=== PATIENT | female | born 1990 | race Caucasian/White ===

== ENCOUNTER 2017-03-15 15:01 | Emergency (ER) | payer OTHER ==
[~2017-03-15] VITALS: Ht 154.9 cm; Wt 57.5 kg
[~2017-03-15 15:01] MED LIST: ACET500C5 PO; ALBU8.5H3 INH; CIPR500T4 PO; IBUP-1542 PO; MED4DP PO; METR500T PO; ONDA4TAB8 PO; POLY17PO6 PO; PRED20TA PO
[2017-03-15 15:05] VITALS: Ht 154.9 cm; Wt 57.5 kg
[2017-03-15] MEDS ORDERED: LORAZEPAM 0.5 MG TAB PO ONE (18:30)
[2017-03-15 18:32] LABS: URINE BLOOD (Dip) POC Negative (NEGATIVE)
[2017-03-15] MEDS ORDERED: LORA-441 PO (18:58)
--- NOTE | 2017-03-15 19:15 | ERD ---
ER Documentation Chief Complaint Date/Time DATE: 03/15/17 TIME: 19:12 Chief Complaint Complains of itching x 1 month since started control HPI This patient is a 27-year-old female with past medical history of asthma, IBS, psoriasis, and anxiety presenting to the emergency department for 1 month of generalized pruritus. The symptoms have been worsening. The patient states she takes around 4-6 Benadryl 25 mg tablets per day with only mild relief of symptoms. The patient states she had a Nexplanon placed 1 month ago. The patient denies all other symptoms at this time. ROS All systems reviewed and are negative except as per history of present illness. Medications Home Meds Active Scripts Lorazepam* (Ativan*) 0.5 Mg Tablet, 0.5 MG PO Q8, #10 TAB Prov:MERARI PAULINO PA-C 03/15/17 Ondansetron Hcl* (Zofran*) 4 Mg Tablet, 4 MG PO Q6H for NAUSEA AND/OR VOMITING, #30 TAB Prov:KAROL BUNCH PA-C 09/28/16 Acetaminophen* (Tylophen*) 500 Mg Capsule, 1 CAP PO Q6H Y for PAIN AND OR ELEVATED TEMP, #20 CAP Prov:KAROL BUNCH PA-C 09/28/16 Polyethylene Glycol* (Miralax*) 17 Gm Powd.pack, 8.5 GM PO DAILY, #30 PACKET Prov:KAROL BUNCH PA-C 09/28/16 Methylprednisolone* (Medrol* DOSE PACK) 4 Mg/Dose-Pack Tab.ds.pk, 4 MG PO . DIRECTED for 6 Days, PACKET Prov:KAROL BUNCH PA-C 09/28/16 Ondansetron Hcl* (Zofran*) 4 Mg Tablet, 4 MG PO Q6H for NAUSEA AND/OR VOMITING, #30 TAB Prov:THIERRY DODD PA-C 09/21/16 Metronidazole* (Flagyl*) 500 Mg Tablet, 500 MG PO TID for 10 Days, TAB Prov:THIERRY DODD PA-C 09/21/16 Ciprofloxacin Hcl* (Ciprofloxacin Hcl*) 500 Mg Tablet, 500 MG PO BID for 7 Days , TAB Prov:THIERRY DODD PA-C 09/21/16 Prednisone* (Prednisone*) 20 Mg Tab, 40 MG PO DAILY for 4 Days, TAB Prov:JUTHIERRYSALOMON Swift PA-C 09/21/16 Ibuprofen* (Motrin*) 600 Mg Tab, 600 MG PO Q6, #20 TAB Prov:ANDREW COLON PA-C 05/28/15 Ciprofloxacin Hcl* (Ciprofloxacin Hcl*) 500 Mg Tablet, 500 MG PO BID for 7 Days , TAB Prov:ANDREW COLON PA-C 05/28/15 Reported Medications Albuterol Sulfate* (Proair HFA*) 8.5 Gm Hfa.aer.ad, 1-2 PUFF INH Q4-6 HOURS Y for WHEEZING AND SOB, INH 05/28/15 Allergies Allergies: Coded Allergies: No Known Allergy (Unverified , 09/28/16) PMhx/Soc History of Surgery: No Anesthesia Reaction: No Hx Neurological Disorder: No Hx Respiratory Disorders: Yes (asthma) Hx Cardiac Disorders: No Hx Psychiatric Problems: No Hx Miscellaneous Medical Probl: Yes (irritable bowel syndrome) Hx Alcohol Use: No Hx Substance Use: Yes (marijuana - used to) Hx Tobacco Use: No FmHx Noncontributory for chief complaint Physical Exam Vitals Vital Signs Date Time Temp Pulse Resp B/P Pulse Ox O2 Delivery O2 Flow Rate FiO2 03/15/17 15:05 98.9 90 20 128/72 94 Physical Exam Const: The patient is mildly anxious appearing. Head: Atraumatic Eyes: Normal Conjunctiva ENT: Normal External Ears, Nose and Mouth. Neck: Full range of motion..~ No meningismus. Resp: Clear to auscultation bilaterally Cardio: Regular rate and rhythm, no murmurs Abd: Soft, non tender, non distended. Normal bowel sounds Skin: No petechiae or rashes. There is some scattered macular papular areas in the bilateral upper and lower extremities. Back: No midline or flank tenderness Ext: No cyanosis, or edema Neur: Awake and alert Psych: The patient has an anxious affect. The patient denies homicidal or suicidal ideation. Results 24 hrs Laboratory Tests Test 03/15/17 18:33 Bedside Urine pH (LAB) 7.0 Bedside Urine Protein (LAB) 1+ Bedside Urine Glucose (UA) Negative Bedside Urine Ketones (LAB) 1+ Bedside Urine Blood Negative Bedside Urine Nitrite (LAB) Negative Bedside Urine Leukocyte Esterase (L Negative Current Medications Medications (Trade) Dose Ordered Sig/Lj Route PRN Reason Start Time Stop Time Status Last Admin Dose Admin Lorazepam (Ativan) 0.5 mg ONCE ONCE PO 03/15/17 18:30 03/15/17 18:31 DC 03/15/17 18:28 Procedures/MDM 27-year-old female presents to the emergency department secondary to complaints of generalized full body pruritus. On physical examination the patient's vitals are within normal limits however the patient does appear acutely anxious. The patient states she had an anxiety attack approximately 2 weeks ago and was taken to a different emergency room but she declined any antianxiety medications because she was unsure of the side effects. I had a long discussion with the patient about possibly taking antianxiety medication here in the emergency department for relief of her symptoms. The patient agreed that this would be a good option and she was given 0.5 mg p.o. Ativan and was feeling significantly improved on reevaluation. The patient is advised to continue taking Benadryl at home as needed [id number] for itching and she was given a very short course of Ativan treatment to be taken only as needed for anxiety or pruritus. The patient agreed with the discharge plan of diagnosis. The patient adamantly denied any suicidal or homicidal ideation. At this time I have low suspicion for any cellulitis or anaphylaxis. Strict ER return precautions were discussed and the patient demonstrates good understanding. The patient is to have very close follow-up with her primary care physician. Departure Diagnosis: Primary Impression: Anxiety reaction Additional Impressions: Itching Generalized pruritus Condition: Fair Patient Instructions: Your Body's Response to Anxiety, Anxiety Reaction Referrals: [facility] YOU HAVE RECEIVED A MEDICAL SCREENING EXAM AND THE RESULTS INDICATE THAT YOU DO NOT HAVE A CONDITION THAT REQUIRES URGENT TREATMENT IN THE EMERGENCY DEPARTMENT. FURTHER EVALUATION AND TREATMENT OF YOUR CONDITION CAN WAIT UNTIL YOU ARE SEEN IN YOUR DOCTORS OFFICE WITHIN THE NEXT 1-2 DAYS. IT IS YOUR RESPONSIBILITY TO MAKE AN APPOINTMENT FOR FOLOW-UP CARE. IF YOU HAVE A PRIMARY DOCTOR --you should call your primary doctor and schedule an appointment IF YOU DO NOT HAVE A PRIMARY DOCTOR YOU CAN CALL OUR PHYSICIAN REFERRAL HOTLINE AT IF YOU CAN NOT AFFORD TO SEE A PHYSICIAN YOU CAN CHOSE FROM THE FOLLOWING [facility] [id number] [facility] [address] [facility] [address] [facility] [address] [facility] [address] [facility]. [facility]. [address] [place] Additional Instructions: Follow up with your PCP within the next 1-3 days for a more thorough evaluation and a possible referral to a specialist. Return the the emergency department immediately if symptoms worsen or change. If you have any questions regarding medications, ask your pharmacist or us before you leave. If any adverse reactions, occur while taking your medications, discontinue the treatment and return to the emergency department immediately. If any new or worsening symptoms, uncontrolled fevers, or other unexplained symptoms occur, return to the emergency department immediately. Take your medications as directed, and complete the entire course of treatment. MERARI PAULINO PA-C March 15, 2017 19:14
[2017-03-15 19:17] VITALS: BP 126/83; PULSE 89; RESP 16
== END 2017-03-15 19:19 | disposition home or self-care (01) ==
LOC: FTE 15:01
DX: F41.1 Generalized anxiety disorder (principal); J45.909 Unspecified asthma, uncomplicated
CPT/HCPCS: 81003; Z7502; Z7610; 99283

== ENCOUNTER 2017-05-14 15:48 | Emergency (ER) | payer OTHER ==
[~2017-05-14] VITALS: Wt 54.5 kg
[~2017-05-14 15:48] MED LIST changes: +LORA-441 PO
[2017-05-14 17:09] LABS: BASOPHILS % 0.3 % (0.0-2.0); EOSINOPHILS % 0.3 % (0.0-7.0); HEMATOCRIT 43.8 % (37.0-47.0); HEMOGLOBIN 15.1 g/dl (12.0-16.0); LYMPHOCYTES % 26.1 % (15.0-51.0); MEAN CORPUSCULAR HEMOGLOBIN 32.3 pg (29.0-33.0); MEAN CORPUSCULAR HGB CONC 34.5 g/dl (32.0-37.0); MEAN CORPUSCULAR VOLUME 93.6 fl (82.0-101.0); MEAN PLATELET VOLUME 9.8 fl (7.4-10.4); MONOCYTE # 0.4 10^3/ul (0.3-0.9); MONOCYTES % 4.8 % (0.0-11.0); NEUTROPHIL # 5.2 10^3/ul (1.6-7.5); NEUTROPHILS % 68.2 % (39.0-77.0); PLATELET COUNT 277 10^3/UL (140-415); RED BLOOD COUNT 4.68 10^6/ul (4.20-5.40); RED CELL DISTRIBUTION WIDTH 11.9 % (11.5-14.5); WHITE BLOOD COUNT 7.6 10^3/ul (4.8-10.8)
[2017-05-14 17:10] LABS: ADD SCAN DIFF NO
[2017-05-14] MEDS ORDERED: DICYCLOMINE 10 MG CAP PO ONE (17:30)
[2017-05-14] MEDS ORDERED: MECLIZINE 12.5 MG TAB PO ONE (17:30)
--- NOTE | 2017-05-14 17:30 | ERD ---
ER Documentation Chief Complaint Date/Time DATE: 05/14/17 TIME: 17:27 Chief Complaint HEADACHE, DIZZINESS, ABD PAIN, ONSET SEVERAL DAYS HPI This is a 27-year-old female presents to the ER with multiple complaints. Patient states that yesterday she began to feel lightheaded as if she was going to faint. Patient states that whenever she gets up she feels as if the world is moving Patient is also complaining of headache, nausea. She denies vomiting. Patient did have a couple episodes of diarrhea on Wednesday, however states that now she is constipated. Patient does have a history of inflammatory bowel disease. Patient is additionally complaining of rashes all over her body that occur every day. She admits to increased and easy bruising. She also complains of right ear ringing. However she denies any ear pain or ear discharge. Patient denies any trauma to the head. She denies any loss of consciousness. She denies any vision changes. She denies any fevers or chills. She denies any urinary frequency or dysuria. She denies any chest pain or shortness of breath. ROS 12 point review of systems was done, all negative except per HPI. Medications Home Meds Active Scripts Ibuprofen* (Motrin*) 600 Mg Tab, 600 MG PO Q6, #30 TAB Prov:BRANDY AVILA 05/14/17 Meclizine Hcl* (Antivert*) 12.5 Mg Tab, 12.5 MG PO Q6H Y for DIZZINESS, #20 TAB Prov:BRANDY AVILA 05/14/17 Dicyclomine Hcl* (Bentyl*) 10 Mg Capsule, 10 MG PO QID for 7 Days, CAP Prov:BRANDY AVILA 05/14/17 Lorazepam* (Ativan*) 0.5 Mg Tablet, 0.5 MG PO Q8, #10 TAB Prov:MERARI PAULINO PA-C 03/15/17 Ondansetron Hcl* (Zofran*) 4 Mg Tablet, 4 MG PO Q6H for NAUSEA AND/OR VOMITING, #30 TAB Prov:KAROL BUNCH PA-C 09/28/16 Acetaminophen* (Tylophen*) 500 Mg Capsule, 1 CAP PO Q6H Y for PAIN AND OR ELEVATED TEMP, #20 CAP Prov:KAROL BUNCH PA-C 09/28/16 Polyethylene Glycol* (Miralax*) 17 Gm Powd.pack, 8.5 GM PO DAILY, #30 PACKET Prov:KAROL BUNCH PA-C 09/28/16 Methylprednisolone* (Medrol* DOSE PACK) 4 Mg/Dose-Pack Tab.ds.pk, 4 MG PO . DIRECTED for 6 Days, PACKET Prov:KAROL BUNCH PA-C 09/28/16 Ondansetron Hcl* (Zofran*) 4 Mg Tablet, 4 MG PO Q6H for NAUSEA AND/OR VOMITING, #30 TAB Prov:THIERRY DODD PA-C 09/21/16 Metronidazole* (Flagyl*) 500 Mg Tablet, 500 MG PO TID for 10 Days, TAB Prov:THIERRY DODD PA-C 09/21/16 Ciprofloxacin Hcl* (Ciprofloxacin Hcl*) 500 Mg Tablet, 500 MG PO BID for 7 Days , TAB Prov:THIERRY DODD PA-C 09/21/16 Prednisone* (Prednisone*) 20 Mg Tab, 40 MG PO DAILY for 4 Days, TAB Prov:THIERRY DODD PA-C 09/21/16 Ibuprofen* (Motrin*) 600 Mg Tab, 600 MG PO Q6, #20 TAB Prov:ANDREW COLON PA-C 05/28/15 Ciprofloxacin Hcl* (Ciprofloxacin Hcl*) 500 Mg Tablet, 500 MG PO BID for 7 Days , TAB Prov:ANDREW COLON PA-C 05/28/15 Reported Medications Albuterol Sulfate* (Proair HFA*) 8.5 Gm Hfa.aer.ad, 1-2 PUFF INH Q4-6 HOURS Y for WHEEZING AND SOB, INH 05/28/15 Allergies Allergies: Coded Allergies: No Known Allergy (Unverified , 09/28/16) PMhx/Soc History of Surgery: No Anesthesia Reaction: No Hx Neurological Disorder: No Hx Respiratory Disorders: Yes (asthma) Hx Cardiac Disorders: No Hx Psychiatric Problems: No Hx Miscellaneous Medical Probl: Yes (irritable bowel syndrome) Hx Alcohol Use: No Hx Substance Use: Yes (marijuana - used to) Hx Tobacco Use: No Smoking Status: Former smoker Physical Exam Vitals Vital Signs Date Time Temp Pulse Resp B/P Pulse Ox O2 Delivery O2 Flow Rate FiO2 05/14/17 15:50 98.8 96 16 127/83 100 Physical Exam GENERAL: The patient is well developed and appropriate for usual state of health , in no apparent distress. HEENT: Atraumatic. Conjunctivae are pink. Pupils equal, round, and reactive to light. Extraocular muscles are grossly intact. Bilateral tympanic membranes are clear with no evidence of erythema, bulging or perforation. No sinus tenderness. NECK: C-spine is soft and supple. There is no cervical lymphadenopathy. CHEST: Clear to auscultation bilaterally. There are no rales, wheezes or rhonchi. HEART: Regular rate and rhythm. No murmurs, clicks, rubs or gallops. EXTREMITIES: Equal pulses bilaterally. There is no peripheral clubbing, cyanosis or edema. No focal swelling or erythema. Full range of motion. Grossly neurovascularly intact. NEURO: Alert and oriented. Cranial nerves II through XII are intact. Motor strength in all 4 extremities with 5/5 strength. Sensation grossly intact. Normal speech and gait. Negative Rhomberg. +2 DTRs. SKIN: There is no apparent rash or petechia. The skin is warm and dry. Result Diagram: 05/14/17 1644 05/14/17 1644 Results 24 hrs Laboratory Tests Test 05/14/17 16:44 White Blood Count 7.610^3/ul Red Blood Count 4.6810^6/ul Hemoglobin 15.1g/dl Hematocrit 43.8% Mean Corpuscular Volume 93.6fl Mean Corpuscular Hemoglobin 32.3pg Mean Corpuscular Hemoglobin Concent 34.5g/dl Red Cell Distribution Width 11.9% Platelet Count 89725^3/UL Mean Platelet Volume 9.8fl Neutrophils % 68.2% Lymphocytes % 26.1% Monocytes % 4.8% Eosinophils % 0.3% Basophils % 0.3% Nucleated Red Blood Cells % 0.0/100WBC Neutrophils # 5.210^3/ul Lymphocytes # 2.010^3/ul Monocytes # 0.410^3/ul Eosinophils # 0.010^3/ul Basophils # 0.010^3/ul Nucleated Red Blood Cells # 0.010^3/ul Urine Color YELLOW Urine Clarity SLIGHTLY CLOUDY Urine pH 5.0 Urine Specific [place] 1.033 Urine Ketones TRACEmg/dL Urine Nitrite NEGATIVEmg/dL Urine Bilirubin NEGATIVEmg/dL Urine Urobilinogen NEGATIVEmg/dL Urine Leukocyte Esterase TRACELeu/ul Urine Microscopic RBC 0/HPF Urine Microscopic WBC 4/HPF Urine Squamous Epithelial Cells FEW/HPF Urine Mucus MANY/HPF Urine Hemoglobin NEGATIVEmg/dL Urine Glucose NEGATIVEmg/dL Urine Total Protein 1+mg/dl Urine Test NEGATIVE Sodium Level 141mmol/L Potassium Level 4.3mmol/L Chloride Level 102mmol/L Carbon Dioxide Level 28mmol/L Anion Gap 15 Blood Urea Nitrogen 13mg/dl Creatinine 0.77mg/dl Glucose Level 86mg/dl Calcium Level 9.7mg/dl Total Bilirubin 0.4mg/dl Direct Bilirubin 0.00mg/dl Indirect Bilirubin 0.4mg/dl Aspartate Amino Transf (AST/SGOT) 23IU/L Alanine Aminotransferase (ALT/SGPT) 36IU/L Alkaline Phosphatase 58IU/L Total Protein 8.1g/dl Albumin 5.2g/dl Globulin 2.90g/dl Albumin/Globulin Ratio 1.79 Current Medications Medications (Trade) Dose Ordered Sig/Lj Route PRN Reason Start Time Stop Time Status Last Admin Dose Admin Dicyclomine HCl (Bentyl) 20 mg ONCE ONCE PO 05/14/17 17:30 05/14/17 17:31 DC 05/14/17 18:35 Meclizine HCl (Antivert) 25 mg ONCE ONCE PO 05/14/17 17:30 05/14/17 17:31 DC 05/14/17 18:35 Procedures/MDM EKG was taken and read by Dr. Carvajal 80bpm no ST elevation or t wave inversion. Differential Diagnosis includes but is not limited to; Benign positional vertigo , labyrinthitis, vertigo, MS, acoustic neuroma, arrhythmia, anemia, hypoglycemia , infection, dehydration. This is a 27-year-old female that presents to the ER with multiple complaints. I discussed this case with my supervising physician is my medical decision making and plan for this patient. Blood work was drawn there was no evidence of anemia, infection, hypoglycemia, dehydration. EKG was taken and there was no evidence of cardiac arrhythmia or cardiac etiology for patient's symptoms. At this time etiology of patient's dizziness and lightheadedness is unknown however patient is neurologically intact with no focal neurological deficits. At this time CT scan is not indicated as patient's physical examination is completely benign. In regards to patient's pelvic pain and ultrasound was ordered, I am awaiting ultrasound results to rule out ovarian cyst or ovarian torsion. Patient's test is negative, suspicion for ectopic is low. Patient was also complaining of bruising, however her platelets are normal. In regards to patient's diarrhea this is likely viral in etiology, patient has denied any rectal bleed to indicate colitis or GI bleed. Please refer to other providers note for further ER course. Departure Diagnosis: Primary Impression: Multiple complaints Condition: Stable BRANDY AVILA May 14, 2017 17:30
[2017-05-14 17:31] LABS: ALBUMIN 5.2 g/dl (3.3-4.9); ALBUMIN/GLOBULIN RATIO 1.79; BILIRUBIN,INDIRECT 0.4 mg/dl (0-1.1); BILIRUBIN,TOTAL 0.4 mg/dl (0.2-1.3); CALCIUM 9.7 mg/dl (8.4-10.2); CREATININE 0.77 mg/dl (0.44-1.00); POTASSIUM 4.3 mmol/L (3.5-5.1); TOTAL PROTEIN 8.1 g/dl (6.1-8.1)
[2017-05-14] MEDS ORDERED: IBUP-1542 PO (17:39)
[2017-05-14] MEDS ORDERED: MECL12.574 PO (17:39)
[2017-05-14] MEDS ORDERED: DICY10CA60 PO (17:39)
[2017-05-14 17:41] LABS: ADD UMIC YES; UR ASCORBIC ACID 40 mg/dL (NEGATIVE); UR BILIRUBIN (Dip) NEGATIVE (NEGATIVE); UR BLOOD (Dip) NEGATIVE (NEGATIVE); UR CLARITY SLIGHTLY CLOUDY (CLEAR); UR COLOR YELLOW (YELLOW); UR GLUCOSE (Dip) NEGATIVE (NEGATIVE); UR KETONES (Dip) TRACE mg/dL (NEGATIVE); UR LEUKOCYTE ESTERASE (Dip) TRACE Leu/ul (NEGATIVE); UR MUCUS MANY /HPF (NONE SEEN); UR NITRITE (Dip) NEGATIVE (NEGATIVE); UR RBC 0 /HPF (0-5); UR SPECIFIC GRAVITY (Dip) 1.033 (1.003-1.030); UR SQUAMOUS EPITHELIAL CELL FEW /HPF (FEW); UR TOTAL PROTEIN (Dip) 1+ mg/dl (NEGATIVE); UR UROBILINOGEN (Dip) NEGATIVE (NEGATIVE)
== END 2017-05-15 17:10 | disposition home or self-care (01) ==
LOC: FTE 15:48
DX: R51 Headache (principal); R42 Dizziness and giddiness; R10.9 Unspecified abdominal pain; R11.0 Nausea; J45.909 Unspecified asthma, uncomplicated; R10.2 Pelvic and perineal pain; Z87.891 Personal history of nicotine dependence
CPT/HCPCS: 80053; 81001; 84703; 85025; 93005; Z7610

== ENCOUNTER 2017-05-30 12:52 | Emergency (ER) | payer OTHER ==
[~2017-05-30] VITALS: Ht 157.5 cm; Wt 54.5 kg
[~2017-05-30 12:52] MED LIST changes: +DICY10CA60 PO; +MECL12.574 PO
[2017-05-30 12:55] VITALS: Ht 157.5 cm; Wt 54.5 kg
[2017-05-30] MEDS ORDERED: KETOROLAC 60 MG INJ IM STA (13:20)
[2017-05-30] MEDS ORDERED: ONDANSETRON (ODT) 4 MG TAB ODT STA (13:20)
--- NOTE | 2017-05-30 13:20 | ERD ---
ER Documentation Chief Complaint Date/Time DATE: 05/30/17 TIME: 13:13 Chief Complaint ABDOMINAL PAIN WITH NAUSEA HPI 27-year-old female who presents here in the emergency department for abdominal pain with nausea but no vomiting since last night. Also stated that she is constipated and her last bowel movement was 3 days ago. She also complains of whitish vaginal discharge 3 days ago. Reported that she felt like she had a fever last night but never took her temperature. Denies headache, loss of consciousness, dizziness, blurry vision, changes in vision, photophobia, facial pain, ear pain, throat pain, difficulty swallowing, neck pain, shoulder pain, chest pain, cough, hemoptysis, loss of appetite, nausea, vomiting, hematochezia, diarrhea, urinary symptoms, , the possibility of being , bladder and bowel incontinences, extremity weakness, extremity tenderness, numbness or tingling sensation, difficulty walking, recent travel, recent exposure to illness, recent antibiotic use in the last 3 months, fever, chills. Allergy: NKDA. PMH: Asthma. Family medical history: Denies. AO LMP: "Last month." Medications: Albuterol. Surgery: Denies. Primary Social History: Works as a cashier manager. Quit smoking cigarettes a month ago. Denies use of alcohol, use of illegal drugs. ROS All systems reviewed and are negative except as per history of present illness. Medications Home Meds Active Scripts Ibuprofen* (Motrin*) 600 Mg Tab, 600 MG PO Q6, #30 TAB Prov:MARGARITABRANDY HICKS C 05/14/17 Meclizine Hcl* (Antivert*) 12.5 Mg Tab, 12.5 MG PO Q6H Y for DIZZINESS, #20 TAB Prov:MARGARITABRANDY C 05/14/17 Dicyclomine Hcl* (Bentyl*) 10 Mg Capsule, 10 MG PO QID for 7 Days, CAP Prov:MARGARITABRANDY C 05/14/17 Lorazepam* (Ativan*) 0.5 Mg Tablet, 0.5 MG PO Q8, #10 TAB Prov:MERARI PAULINOC 03/15/17 Ondansetron Hcl* (Zofran*) 4 Mg Tablet, 4 MG PO Q6H for NAUSEA AND/OR VOMITING, #30 TAB Prov:KAROL BUNCHC 09/28/16 Acetaminophen* (Tylophen*) 500 Mg Capsule, 1 CAP PO Q6H Y for PAIN AND OR ELEVATED TEMP, #20 CAP Prov:KAROL BUNCH PA-C 09/28/16 Polyethylene Glycol* (Miralax*) 17 Gm Powd.pack, 8.5 GM PO DAILY, #30 PACKET Prov:KAROL BUNCH PA-C 09/28/16 Methylprednisolone* (Medrol* DOSE PACK) 4 Mg/Dose-Pack Tab.ds.pk, 4 MG PO . DIRECTED for 6 Days, PACKET Prov:KAROL BUNCH PA-C 09/28/16 Ondansetron Hcl* (Zofran*) 4 Mg Tablet, 4 MG PO Q6H for NAUSEA AND/OR VOMITING, #30 TAB Prov:THIERRY DODD PA-C 09/21/16 Metronidazole* (Flagyl*) 500 Mg Tablet, 500 MG PO TID for 10 Days, TAB Prov:THIERRY DODD PA-C 09/21/16 Ciprofloxacin Hcl* (Ciprofloxacin Hcl*) 500 Mg Tablet, 500 MG PO BID for 7 Days , TAB Prov:THIERRY DODD PA-C 09/21/16 Prednisone* (Prednisone*) 20 Mg Tab, 40 MG PO DAILY for 4 Days, TAB Prov:THIERRY DODD PA-C 09/21/16 Ibuprofen* (Motrin*) 600 Mg Tab, 600 MG PO Q6, #20 TAB Prov:ANDREW COLON PA-C 05/28/15 Ciprofloxacin Hcl* (Ciprofloxacin Hcl*) 500 Mg Tablet, 500 MG PO BID for 7 Days , TAB Prov:ANDREW COLON PA-C 05/28/15 Reported Medications Albuterol Sulfate* (Proair HFA*) 8.5 Gm Hfa.aer.ad, 1-2 PUFF INH Q4-6 HOURS Y for WHEEZING AND SOB, INH 05/28/15 Allergies Allergies: Coded Allergies: No Known Allergy (Unverified , 09/28/16) PMhx/Soc History of Surgery: No Anesthesia Reaction: No Hx Neurological Disorder: No Hx Respiratory Disorders: Yes (asthma) Hx Cardiac Disorders: No Hx Psychiatric Problems: No Hx Miscellaneous Medical Probl: Yes (irritable bowel syndrome) Hx Alcohol Use: No Hx Substance Use: Yes (marijuana - used to) Hx Tobacco Use: No Physical Exam Vitals Vital Signs Date Time Temp Pulse Resp B/P Pulse Ox O2 Delivery O2 Flow Rate FiO2 05/30/17 12:55 99.6 90 18 113/70 96 Physical Exam CONSTITUTIONAL: Well-appearing; well-nourished; in no apparent distress. HEAD: Normocephalic; atraumatic. EYES: Conjunctiva clear, sclera non-icteric, EOM intact. PERRL Ears: Hearing intact. EACs clear, TMs non-bulging, non-inflamed, translucent & mobile, ossicles normal appearance, No obstructions, no erythema, no discharges Nose: No obstructions. No polyps. No external lesions. Mucosa non-inflamed. No external lesions, septum and turbinates normal. No rhinorrhea. No discharges. Frontal sinus is non-tender to palpation. Maxillary sinus is non-tender to palpation. MOUTH: Moist mucous membranes, no lesion, no obstructions, no vesicles, no thrush, patent airway Throat: Uvula in midline. Right tonsil is +1 with no erythema, no exudate. Left tonsil is +1 with no erythema, no exudate. Tolerating secretions well. Good gag reflex. Patent airway. Neck: Supple, without lesions, bruits, or adenopathy. No mass. Thyroid non- enlarged and non-tender to palpation. CHEST: Symmetrical chest. Respirations even and not labored. No retractions noted. CARDIOVASCULAR: Normal S1, S2. RRR. No murmurs, gallops. RESPIRATORY: Normal chest excursion with respiration; breath sounds clear and equal bilaterally; no wheezes, rhonchi, or rales. Breathing even and unlabored. Speaking in clear, full, and complete sentences w/ ease. ABDOMEN: Normal bowel sounds normal. Soft, round, non-distended, non-guarding, no rebound, no organomegaly, no masses, no pulsating abdominal mass. No hernia. No peritoneal signs. : No CVA tenderness. BACK: Symmetrical shoulder. Spine is midline without deformity, tenderness. No evidence of trauma or deformity. PELVIS: Stable pelvis. No evidence of trauma or deformity. MUSCULOSKELETAL: Normal gait and station. No misalignment, asymmetry, crepitation, defects, tenderness, masses, effusions, decreased range of motion, instability, atrophy or abnormal strength or tone in the head, neck, spine, ribs , pelvis or extremities. No calf tenderness. NEUROVASCULAR: Distal pulses are present. Pedal pulse are present, equal, and normal. Capillary refills are < 2 seconds. NEUROLOGIC: Alert and oriented x4. Speaks full and clear sentences. Cranial Nerves II-XII normal. Sensation to pain, touch, and proprioception normal. Grossly unremarkable. No neurologic deficits. Romberg test is negative. PSYCHOLOGICAL: The patients mood and manner are appropriate. No hallucinations , delusions. Not SI. Not HI. Has the capacity to decide for self SKIN: Normal for age and ethnicity; warm; dry; good turgor; no apparent lesions or exudates. No rashes, hives, discoloration. Intact. Result Diagram: 05/30/17 1321 05/30/17 1321 Results 24 hrs Laboratory Tests Test 05/30/17 13:21 White Blood Count 8.810^3/ul Red Blood Count 4.4610^6/ul Hemoglobin 14.8g/dl Hematocrit 42.1% Mean Corpuscular Volume 94.4fl Mean Corpuscular Hemoglobin 33.2pg Mean Corpuscular Hemoglobin Concent 35.2g/dl Red Cell Distribution Width 11.9% Platelet Count 02581^3/UL Mean Platelet Volume 9.9fl Neutrophils % 79.4% Lymphocytes % 16.5% Monocytes % 3.6% Eosinophils % 0.1% Basophils % 0.2% Nucleated Red Blood Cells % 0.0/100WBC Neutrophils # 7.010^3/ul Lymphocytes # 1.510^3/ul Monocytes # 0.310^3/ul Eosinophils # 0.010^3/ul Basophils # 0.010^3/ul Nucleated Red Blood Cells # 0.010^3/ul Urine Color LEANDRO Urine Clarity CLOUDY Urine pH 6.0 Urine Specific [place] 1.019 Urine Ketones TRACEmg/dL Urine Nitrite NEGATIVEmg/dL Urine Bilirubin NEGATIVEmg/dL Urine Urobilinogen NEGATIVEmg/dL Urine Leukocyte Esterase 1+[place]osta/ul Urine Microscopic RBC 1/HPF Urine Microscopic WBC 1/HPF Urine Squamous Epithelial Cells FEW/HPF Urine Bacteria FEW/HPF Urine Mucus FEW/HPF Urine Hemoglobin NEGATIVEmg/dL Urine Glucose NEGATIVEmg/dL Urine Total Protein NEGATIVEmg/dl Sodium Level 144mmol/L Potassium Level 3.9mmol/L Chloride Level 99mmol/L Carbon Dioxide Level 27mmol/L Anion Gap 22 Blood Urea Nitrogen 9mg/dl Creatinine 0.63mg/dl Glucose Level 97mg/dl Calcium Level 9.6mg/dl Total Bilirubin 0.5mg/dl Direct Bilirubin 0.00mg/dl Indirect Bilirubin 0.5mg/dl Aspartate Amino Transf (AST/SGOT) 22IU/L Alanine Aminotransferase (ALT/SGPT) 30IU/L Alkaline Phosphatase 52IU/L Total Protein 7.6g/dl Albumin 4.9g/dl Globulin 2.70g/dl Albumin/Globulin Ratio 1.81 Amylase Level 88U/L Lipase 95U/L Current Medications Medications (Trade) Dose Ordered Sig/Lj Route PRN Reason Start Time Stop Time Status Last Admin Dose Admin Ketorolac Tromethamine (Toradol) 60 mg ONCE STAT IM 05/30/17 13:20 05/30/17 13:23 DC 05/30/17 13:41 Ondansetron HCl (Zofran Odt) 4 mg ONCE STAT ODT 05/30/17 13:20 05/30/17 13:23 DC 05/30/17 13:40 Procedures/MDM Examination: Please see physical examination. Disease process, medical treatment was explained to the patient and family member. They verbalized understanding and agreed with the diagnostic tests, medical treatment, and follow-up care. Radiology: CT of the abdomen and pelvis Impression: No urinary tract calculus or hydronephrosis. Normal appendix. Otherwise normal CT scan of the abdomen and pelvis. Blood works: Reviewed. POC urine : Negative. Urinalysis: Reviewed. Treatment: Zofran. Toradol IM. Re-evaluation: Denies headache, dizziness, blurry vision, neck pain, shoulder pain, chest pain, back pain, abdominal pain, nausea, vomiting. No episode of emesis in the emergency department. Alert and oriented 4. Speaks full and clear sentences. Respirations even and unlabored. Lung sounds clear to auscultation. Active bowel sounds. There is no right upper/right lower/ epigastric/left upper/left lower abdominal tenderness and light and deep palpation. Negative on Rovsings sign. Negative [place] sign. Able to jump 5 times without developing right-sided abdominal pain. No peritoneal signs. Ambulatory with steady gait. No neurovascular deficits. No neurological deficits. Consultation: None. Differential diagnosis: Appendicitis versus pancreatitis versus cholecystitis versus pyelonephritis versus urinary tract infection Medical decision makin-year-old female who presents here in the emergency department for abdominal pain with nausea but no vomiting since last night. Also stated that she is constipated and her last bowel movement was 3 days ago. She also complains of whitish vaginal discharge 3 days ago. Reported that she felt like she had a fever last night but never took her temperature. Patient's complaint, patient's history about her complaint, my physical findings , diagnostic test results, my reevaluation are consistent with final diagnosis of urinary tract infection. Medications prescribed are the following: Zofran. Motrin. Keflex. Colace. Patient and family member are made aware of the side effects and adverse reactions of the medications prescribed. Instructed on when to seek emergent and medical attention in case allergic/anaphylactic reactions or severe side effects and or adverse reactions to medications. Patient and family member verbalized understanding. Patient instructed Instructed to follow-up with his PCP in 24-48 hours. Instructed to Call 911 for chest pain, shortness of breath. Advised to come back here in ED as soon as possible for severity of symptoms which includes but not limited to: any new symptoms; shortness of breath/difficulty of breathing; cardiovascular changes; severe gastrointestinal symptoms; signs and symptoms of bleeding and or infection; signs of compartment syndrome/neurovascular changes; neurological changes/deficits. Patient and family member verbalized understanding. Upon discharge, patient is alert and oriented x 4, speaks full and clear sentences, denies pain, has no neurological deficits, has no neurovascular deficits, difficulty of breathing. Breathing even and unlabored. Lung sounds are clear to auscultation. Not in distress. Appears comfortable. Ambulatory with steady gait. Appears satisfied with care provided here in ED. Departure Diagnosis: Primary Impression: Abdominal pain Additional Impressions: UTI (urinary tract infection) Constipation Condition: Stable Additional Instructions: Instructed to follow-up with his PCP in 24-48 hours. Instructed to Call 911 for chest pain, shortness of breath. Advised to come back here in ED as soon as possible for severity of symptoms which includes but not limited to: any new symptoms; shortness of breath/difficulty of breathing; cardiovascular changes; severe gastrointestinal symptoms; signs and symptoms of bleeding and or infection; signs of compartment syndrome/neurovascular changes; neurological changes/deficits. Patient and family member verbalized understanding. ANY GARDNER May 30, 2017 13:19
[2017-05-30 13:43] LABS: ADD SCAN DIFF NO
[2017-05-30 13:47] LABS: BASOPHILS % 0.2 % (0.0-2.0); EOSINOPHILS % 0.1 % (0.0-7.0); HEMATOCRIT 42.1 % (37.0-47.0); HEMOGLOBIN 14.8 g/dl (12.0-16.0); LYMPHOCYTES # 1.5 10^3/ul (0.8-2.9); LYMPHOCYTES % 16.5 % (15.0-51.0); MEAN CORPUSCULAR HEMOGLOBIN 33.2 pg (29.0-33.0); MEAN CORPUSCULAR HGB CONC 35.2 g/dl (32.0-37.0); MEAN CORPUSCULAR VOLUME 94.4 fl (82.0-101.0); MEAN PLATELET VOLUME 9.9 fl (7.4-10.4); MONOCYTE # 0.3 10^3/ul (0.3-0.9); MONOCYTES % 3.6 % (0.0-11.0); NEUTROPHILS % 79.4 % (39.0-77.0); PLATELET COUNT 219 10^3/UL (140-415); RED BLOOD COUNT 4.46 10^6/ul (4.20-5.40); RED CELL DISTRIBUTION WIDTH 11.9 % (11.5-14.5); WHITE BLOOD COUNT 8.8 10^3/ul (4.8-10.8)
[2017-05-30 13:54] LABS: ADD UMIC YES; UR ASCORBIC ACID 40 mg/dL (NEGATIVE); UR BACTERIA FEW /HPF (NONE SEEN); UR BILIRUBIN (Dip) NEGATIVE (NEGATIVE); UR BLOOD (Dip) NEGATIVE (NEGATIVE); UR CLARITY CLOUDY (CLEAR); UR COLOR AMBER (YELLOW); UR GLUCOSE (Dip) NEGATIVE (NEGATIVE); UR KETONES (Dip) TRACE mg/dL (NEGATIVE); UR LEUKOCYTE ESTERASE (Dip) 1+ Leu/ul (NEGATIVE); UR MUCUS FEW /HPF (NONE SEEN); UR NITRITE (Dip) NEGATIVE (NEGATIVE); UR RBC 1 /HPF (0-5); UR SPECIFIC GRAVITY (Dip) 1.019 (1.003-1.030); UR SQUAMOUS EPITHELIAL CELL FEW /HPF (FEW); UR TOTAL PROTEIN (Dip) NEGATIVE (NEGATIVE); UR UROBILINOGEN (Dip) NEGATIVE (NEGATIVE)
[2017-05-30 14:10] LABS: ALBUMIN 4.9 g/dl (3.3-4.9); ALBUMIN/GLOBULIN RATIO 1.81; BILIRUBIN,INDIRECT 0.5 mg/dl (0-1.1); BILIRUBIN,TOTAL 0.5 mg/dl (0.2-1.3); CALCIUM 9.6 mg/dl (8.4-10.2); CREATININE 0.63 mg/dl (0.44-1.00); POTASSIUM 3.9 mmol/L (3.5-5.1); TOTAL PROTEIN 7.6 g/dl (6.1-8.1)
--- NOTE | 2017-05-30 14:42 | RADRPT ---
PROCEDURE: CT Abdomen and Pelvis without contrast. CLINICAL INDICATION: Abdominal and pelvic pain. Flank pain. TECHNIQUE: CT scan of the abdomen and pelvis without contrast was performed. Coronal and sagittal reformatted images were obtained from the axial source images. Images were reviewed on a [employer] PACS workstation. Total exam DLP is 2 over 57.93 mGy-cm. CTDIvol is 5.03 mGy. One or more of the following dose reduction techniques were used: Automated exposure control, adjustment of the mA and/or kV according to patient size, use of iterative reconstruction technique. COMPARISON: 09/21/2016. FINDINGS: The lung bases are normal. There is no pleural effusion. The liver is normal in size and attenuation. There is no focal hepatic lesion. The gallbladder and bile ducts are normal. The spleen is normal in size. There is no focal splenic lesion. Both adrenals are normal with no enlargement or mass. The pancreas is unremarkable with no mass or evidence of pancreatitis. There is no renal mass or hydronephrosis. There is no renal calculus or ureteral calculus. The abdominal aorta is not dilated. There is no retroperitoneal lymphadenopathy or mass. There is no pelvic lymphadenopathy or mass. The bladder and distal ureters are normal. The periappendiceal region is unremarkable with no evidence of appendicitis. The appendix is well se en and appears normal. The bowel and mesentery are normal. The terminal ileum is normal. There is no free fluid or free gas. The osseous structures are unremarkable with no fracture or lytic lesion. IMPRESSION: 1. No urinary tract calculus or hydronephrosis. 2. Normal appendix. 3. Otherwise normal CT scan of the abdomen and pelvis. RPTAT: QQ .Ernie Gonzales MD, MD Date Time Electronically viewed and signed by .Ernie Gonzales MD, on 05/30/2017 14:42 .R/
[2017-05-30] MEDS ORDERED: CEPH-443 PO (16:18)
[2017-05-30] MEDS ORDERED: ONDA4TAB14 PO (16:20)
[2017-05-30] MEDS ORDERED: IBUP-1542 PO (16:21)
[2017-05-30] MEDS ORDERED: DOCU-144 PO (16:21)
== END 2017-05-30 16:34 | disposition home or self-care (01) ==
LOC: FTE 12:52
DX: R10.9 Unspecified abdominal pain (principal); N39.0 Urinary tract infection, site not specified; K59.00 Constipation, unspecified; J45.909 Unspecified asthma, uncomplicated; R10.2 Pelvic and perineal pain; R11.0 Nausea; Z87.891 Personal history of nicotine dependence
CPT/HCPCS: 74176; 80053; 81001; 82150; 83690; 85025; 87086; 87591; J1885; Z7610; 96372

== ENCOUNTER 2017-08-09 16:44 | Emergency (ER) | payer OTHER ==
[~2017-08-09] VITALS: Ht 157.5 cm; Wt 60.5 kg
[~2017-08-09 16:44] MED LIST changes: +CEPH-443 PO; +DOCU-144 PO; +ONDA4TAB14 PO
[2017-08-09 16:58] VITALS: Ht 157.5 cm; Wt 60.5 kg
--- NOTE | 2017-08-09 18:53 | ERD ---
ER Documentation Chief Complaint Date/Time DATE: 08/09/17 TIME: 18:49 Chief Complaint pt bib self with c/o left lower pelvic pain HPI 27-year-old female presents here in emergency department for complaints of lower abdominal pain, left lower pelvic pain that started yesterday. Patient describes the pain as sharp pains, 4/10 scale, intermittent, not better or worse with anything. Patient is approximately 5 weeks . 3 para 2 0. Patient denies any vaginal bleeding. Patient denies any hematuria or dysuria. Patient denies any flank pain. ROS All systems reviewed and are negative except as per history of present illness. Medications Home Meds Active Scripts Docusate Sodium* (Colace*) 100 Mg Capsule, 100 MG PO DAILY Y for CONSTIPATION, # 30 CAP Prov:PASILABANALLAR F 05/30/17 Ibuprofen* (Motrin*) 600 Mg Tab, 600 MG PO Q8 Y for PAIN AND OR ELEVATED TEMP, # 30 TAB Prov:BARTOLOMEILAANY MENDOZA F 05/30/17 Ondansetron (Ondansetron Odt) 4 Mg Tab.rapdis, 4 MG PO Q6H Y for NAUSEA AND/OR VOMITING, #20 TAB Prov:PASILAANY MENDOZA F 05/30/17 Cephalexin* (Keflex*) 500 Mg Capsule, 500 MG PO QID for 5 Days, CAP Prov:PASILABANALLAR F 05/30/17 Ibuprofen* (Motrin*) 600 Mg Tab, 600 MG PO Q6, #30 TAB Prov:MARGARITABRANDY HICKS C 05/14/17 Meclizine Hcl* (Antivert*) 12.5 Mg Tab, 12.5 MG PO Q6H Y for DIZZINESS, #20 TAB Prov:MARGARITA,BRANDY C 05/14/17 Dicyclomine Hcl* (Bentyl*) 10 Mg Capsule, 10 MG PO QID for 7 Days, CAP Prov:MARGARITA,BRANDY C 05/14/17 Lorazepam* (Ativan*) 0.5 Mg Tablet, 0.5 MG PO Q8, #10 TAB Prov:MERARI PAULINO PA-C 03/15/17 Ondansetron Hcl* (Zofran*) 4 Mg Tablet, 4 MG PO Q6H for NAUSEA AND/OR VOMITING, #30 TAB Prov:KAROL BUNCH PA-C 09/28/16 Acetaminophen* (Tylophen*) 500 Mg Capsule, 1 CAP PO Q6H Y for PAIN AND OR ELEVATED TEMP, #20 CAP Prov:KAROL BUNCH PA-C 09/28/16 Polyethylene Glycol* (Miralax*) 17 Gm Powd.pack, 8.5 GM PO DAILY, #30 PACKET Prov:KAROL BUNCH PA-C 09/28/16 Methylprednisolone* (Medrol* DOSE PACK) 4 Mg/Dose-Pack Tab.ds.pk, 4 MG PO . DIRECTED for 6 Days, PACKET Prov:KAROL BUNCH PA-C 09/28/16 Ondansetron Hcl* (Zofran*) 4 Mg Tablet, 4 MG PO Q6H for NAUSEA AND/OR VOMITING, #30 TAB Prov:THIERRY DODD PA-C 09/21/16 Metronidazole* (Flagyl*) 500 Mg Tablet, 500 MG PO TID for 10 Days, TAB Prov:THIERRY DODD PA-C 09/21/16 Ciprofloxacin Hcl* (Ciprofloxacin Hcl*) 500 Mg Tablet, 500 MG PO BID for 7 Days , TAB Prov:THIERRY DODD PA-C 09/21/16 Prednisone* (Prednisone*) 20 Mg Tab, 40 MG PO DAILY for 4 Days, TAB Prov:THIERRY DODD PA-C 09/21/16 Ibuprofen* (Motrin*) 600 Mg Tab, 600 MG PO Q6, #20 TAB Prov:ANDREW COLON PA-C 05/28/15 Ciprofloxacin Hcl* (Ciprofloxacin Hcl*) 500 Mg Tablet, 500 MG PO BID for 7 Days , TAB Prov:ANDREW COLON PA-C 05/28/15 Reported Medications Albuterol Sulfate* (Proair HFA*) 8.5 Gm Hfa.aer.ad, 1-2 PUFF INH Q4-6 HOURS Y for WHEEZING AND SOB, INH 05/28/15 Allergies Allergies: Coded Allergies: No Known Allergy (Unverified , 09/28/16) PMhx/Soc Medical and Surgical Hx: pt denies Medical Hx, pt denies Surgical Hx History of Surgery: No Anesthesia Reaction: No Hx Neurological Disorder: No Hx Respiratory Disorders: Yes (asthma) Hx Cardiac Disorders: No Hx Psychiatric Problems: No Hx Miscellaneous Medical Probl: Yes (irritable bowel syndrome) Hx Alcohol Use: No Hx Substance Use: Yes (marijuana - used to) Hx Tobacco Use: Yes FmHx Family History: No coronary disease, No diabetes, No other Physical Exam Vitals Vital Signs Date Time Temp Pulse Resp B/P Pulse Ox O2 Delivery O2 Flow Rate FiO2 08/09/17 16:58 98.3 96 16 122/57 99 Physical Exam GENERAL: The patient is well developed and appropriate for usual state of health, in no apparent distress. CHEST: Clear to auscultation bilaterally. There are no rales, wheezes or rhonchi. HEART: Regular rate and rhythm. No murmurs, clicks, rubs or gallops. No S3 or S4. ABDOMEN: Soft, nontender and nondistended. Good bowel sounds. No rebound or guarding. No gross peritonitis. No gross organomegaly or masses. No Deluna sign or McBurney point tenderness. BACK: No midline or flank tenderness. EXTREMITIES: Equal pulses bilaterally. There is no peripheral clubbing, cyanosis or edema. No focal swelling or erythema. Full range of motion. Grossly neurovascularly intact. NEURO: Alert and oriented. Cranial nerves 2-12 intact. Motor strength in all 4 extremities with 5/5 strength. Sensation grossly intact. Normal speech and gait. SKIN: There is no apparent rash or petechia. The skin is warm and dry. HEMATOLOGIC AND LYMPHATIC: There is no evidence of excessive bruising or lymphedema. No gross cervical, axillary, or inguinal lymphadenopathy. Result Diagram: 08/09/17 1900 Results 24 hrs Laboratory Tests Test 08/09/17 18:00 08/09/17 19:00 Urine Color STRAW Urine Clarity CLEAR Urine pH 7.0 Urine Specific [place] 1.005 Urine Ketones NEGATIVEmg/dL Urine Nitrite NEGATIVEmg/dL Urine Bilirubin NEGATIVEmg/dL Urine Urobilinogen NEGATIVEmg/dL Urine Leukocyte Esterase TRACELeu/ul Urine Microscopic RBC 1/HPF Urine Microscopic WBC 1/HPF Urine Squamous Epithelial Cells FEW/HPF Urine Bacteria FEW/HPF Urine Hemoglobin NEGATIVEmg/dL Urine Glucose NEGATIVEmg/dL Urine Total Protein NEGATIVEmg/dl White Blood Count 8.710^3/ul Red Blood Count 4.1410^6/ul Hemoglobin 13.5g/dl Hematocrit 39.1% Mean Corpuscular Volume 94.4fl Mean Corpuscular Hemoglobin 32.6pg Mean Corpuscular Hemoglobin Concent 34.5g/dl Red Cell Distribution Width 11.9% Platelet Count 67061^3/UL Mean Platelet Volume 9.7fl Neutrophils % 71.4% Lymphocytes % 22.1% Monocytes % 4.8% Eosinophils % 1.3% Basophils % 0.2% Nucleated Red Blood Cells % 0.0/100WBC Neutrophils # 6.210^3/ul Lymphocytes # 1.910^3/ul Monocytes # 0.410^3/ul Eosinophils # 0.110^3/ul Basophils # 0.010^3/ul Nucleated Red Blood Cells # 0.010^3/ul Beta HCG, Quantitative 79893.0mIU/ml PROCEDURE: OBSTETRICAL ULTRASOUND WITH ENDOVAGINAL IMAGES CLINICAL INDICATION: pelvic pain TECHNIQUE: Multiple sonographic images of the pelvis were obtained utilizing a transabdominal and endovaginal technique. The images were reviewed on a PACS workstation. COMPARISON: None. LMP: 07/01/2017 FINDINGS: There is a single intrauterine with mean sac diameter of 1.34 cm and crown-rump length of 0.56 cm which is consistent with a gestational age of 6 weeks, 1 day . The estimated date of delivery by ultrasound is 04/03/2018 . The estimated gestational age by LMP is 5 weeks, 4 days . The estimated date of delivery by LMP is 04/07/2018 . No heart tones are detected. There is a hypoechoic and hypovascular crescentic lesion adjacent to the gestational sac measuring 1.8 x 1.0 x 0.5 cm consistent with a subchorionic hemorrhage. The right ovary measures 2.6 x 1.9 x 2.3 cm. The left ovary measures 2.3 x 1.5 x 2.0 cm. There is normal vascular flow in both ovaries. No significant ovarian lesions are seen. No significant pelvic free fluid is identified. IMPRESSION: An intrauterine gestation is identified with crown-rump length of 0.56 cm which would be consistent with a gestational age of 6 weeks, 1 day. No heart tones are detected. Findings may be due to a viable intrauterine although early demise is not excluded. Short-term follow-up ultrasound and serial Beta HCG measurements are recommended for further evaluation. 1.8 cm subchorionic hemorrhage. RPTAT: EE Brandon Hoover Physician Date Time Electronically viewed and signed by Brandon Hoover Physician on 08/09/2017 19:02 RA/ CC: EDMUND ESQUIVEL NP Procedures/MDM Medical Decision Making: Symptoms of pelvic pain nonspecific at this time, can be from the subchorionic bleed. There is a noted in the uterus, no heart tones, may be too early, can be also sent of early failed . There is low suspicion for abdominal emergencies at this time. Patients abdominal exam is normal at this time. Patients radiology exam does not show any abdominal emergencies at this time. There is low suspicion for appendicitis , cholecystitis, abdominal aortic aneurysms or peritonitis at this time. There is low suspicion for sepsis. Patient appears well and is hemodynamically stable. Disposition: Home. Condition: Stable Prescription Tylenol Instructions: Patient is advised to take medications as prescribed. Patient is advised to rest, increase fluid intake and do brat diet for next 1-2 days and progress as tolerated. Patient is advised that if symptoms are worse, severe abdominal pain, uncontrolled vomiting, high fever, severe flank pain, worst signs and symptoms, to return to the emergency department immediately. Otherwise, patient can follow up with primary care doctor in 5-7 days. Disclaimer: Inadvertent spelling and grammatical errors are likely due to EHR/ dictation software use and do not reflect on the overall quality of patient care. Also, please note that the electronic time recorded on this note does not necessarily reflect the actual time of the patient encounter. Departure Diagnosis: Primary Impression: Subchorionic hemorrhage Fetus number: single or unspecified fetus Trimester: first trimester Qualified Code: O41.8X10 - Subchorionic hemorrhage of placenta in first trimester, single or unspecified fetus Additional Impressions: Intrauterine Pelvic pain Condition: Stable Patient Instructions: Pelvic Pain In : Unclear (2-3 Trimester), Vaginal Bleed in EDMUND ESQUIVEL NP Aug 09, 2017 18:53
--- NOTE | 2017-08-09 19:02 | RADRPT ---
PROCEDURE: OBSTETRICAL ULTRASOUND WITH ENDOVAGINAL IMAGES CLINICAL INDICATION: pelvic pain TECHNIQUE: Multiple sonographic images of the pelvis were obtained utilizing a transabdominal and endovaginal technique. The images were reviewed on a PACS workstation. COMPARISON: None. LMP: 07/01/2017 FINDINGS: There is a single intrauterine with mean sac diameter of 1.34 cm and crown-rump length of 0.56 cm which is consistent with a gestational age of 6 weeks, 1 day . The estimated date of delivery by ultrasound is 04/03/2018 . The estimated gestational age by LMP is 5 weeks, 4 days . The estimated date of delivery by LMP is 04/07/2018 . No heart tones are detected. There is a hypoechoic and hypovascular crescentic lesion adjacent to the gestational sac measuring 1 .8 x 1.0 x 0.5 cm consistent with a subchorionic hemorrhage. The right ovary measures 2.6 x 1.9 x 2.3 cm. The left ovary measures 2.3 x 1.5 x 2.0 cm. There is no rmal vascular flow in both ovaries. No significant ovarian lesions are seen. No significant pelvic free fluid is identified. IMPRESSION: An intrauterine gestation is identified with crown-rump length of 0.56 cm which would be consistent with a gestational age of 6 weeks, 1 day. No heart tones are detected. Findings may be due to a viable intrauterine although early demise is not excluded. Short-term follow-up ul trasound and serial Beta HCG measurements are recommended for further evaluation. 1.8 cm subchorionic hemorrhage. RPTAT: EE Physician Benny Date Time Electronically viewed and signed by Physician Benny on 08/09/2017 19:02 /
[2017-08-09 19:30] LABS: BASOPHILS % 0.2 % (0.0-2.0); EOSINOPHILS # 0.1 10^3/ul (0.0-0.5); EOSINOPHILS % 1.3 % (0.0-7.0); HEMATOCRIT 39.1 % (37.0-47.0); HEMOGLOBIN 13.5 g/dl (12.0-16.0); LYMPHOCYTES # 1.9 10^3/ul (0.8-2.9); LYMPHOCYTES % 22.1 % (15.0-51.0); MEAN CORPUSCULAR HEMOGLOBIN 32.6 pg (29.0-33.0); MEAN CORPUSCULAR HGB CONC 34.5 g/dl (32.0-37.0); MEAN CORPUSCULAR VOLUME 94.4 fl (82.0-101.0); MEAN PLATELET VOLUME 9.7 fl (7.4-10.4); MONOCYTE # 0.4 10^3/ul (0.3-0.9); MONOCYTES % 4.8 % (0.0-11.0); NEUTROPHIL # 6.2 10^3/ul (1.6-7.5); NEUTROPHILS % 71.4 % (39.0-77.0); PLATELET COUNT 250 10^3/UL (140-415); RED BLOOD COUNT 4.14 10^6/ul (4.20-5.40); RED CELL DISTRIBUTION WIDTH 11.9 % (11.5-14.5); WHITE BLOOD COUNT 8.7 10^3/ul (4.8-10.8)
[2017-08-09 19:39] LABS: ADD UMIC YES; UR ASCORBIC ACID NEGATIVE (NEGATIVE); UR BACTERIA FEW /HPF (NONE SEEN); UR BILIRUBIN (Dip) NEGATIVE (NEGATIVE); UR BLOOD (Dip) NEGATIVE (NEGATIVE); UR CLARITY CLEAR (CLEAR); UR COLOR STRAW (YELLOW); UR GLUCOSE (Dip) NEGATIVE (NEGATIVE); UR KETONES (Dip) NEGATIVE (NEGATIVE); UR LEUKOCYTE ESTERASE (Dip) TRACE Leu/ul (NEGATIVE); UR NITRITE (Dip) NEGATIVE (NEGATIVE); UR RBC 1 /HPF (0-5); UR SPECIFIC GRAVITY (Dip) 1.005 (1.003-1.030); UR SQUAMOUS EPITHELIAL CELL FEW /HPF (FEW); UR TOTAL PROTEIN (Dip) NEGATIVE (NEGATIVE); UR UROBILINOGEN (Dip) NEGATIVE (NEGATIVE)
[2017-08-09] MEDS ORDERED: ACET500C5 PO (20:47)
== END 2017-08-09 20:55 | disposition home or self-care (01) ==
LOC: FTE 16:44
DX: O26.891 Other specified pregnancy related conditions, first trimester (principal); O41.8X10 Other specified disorders of amniotic fluid and membranes, first trimester, not applicable or unspecified; R10.2 Pelvic and perineal pain; J45.909 Unspecified asthma, uncomplicated; Z3A.01 Less than 8 weeks gestation of pregnancy; Z87.891 Personal history of nicotine dependence
CPT/HCPCS: 36415; 76801; 76817; 81001; 84702; 85025; 86900; 86901; Z7502

== ENCOUNTER 2017-08-24 18:43 | Emergency (ER) | payer OTHER ==
[~2017-08-24] VITALS: Ht 165.1 cm; Wt 59.5 kg
[2017-08-24 19:00] VITALS: Ht 165.1 cm; Wt 59.5 kg
[2017-08-24] MEDS ORDERED: ACETAMINOPHEN 500 MG TAB PO STA (20:39)
[2017-08-24 21:10] LABS: BASOPHILS % 0.3 % (0.0-2.0); EOSINOPHILS # 0.1 10^3/ul (0.0-0.5); EOSINOPHILS % 0.3 % (0.0-7.0); HEMATOCRIT 37.6 % (37.0-47.0); LYMPHOCYTES # 1.7 10^3/ul (0.8-2.9); LYMPHOCYTES % 11.7 % (15.0-51.0); MEAN CORPUSCULAR HGB CONC 34.6 g/dl (32.0-37.0); MEAN CORPUSCULAR VOLUME 95.4 fl (82.0-101.0); MEAN PLATELET VOLUME 9.4 fl (7.4-10.4); MONOCYTE # 0.5 10^3/ul (0.3-0.9); NEUTROPHIL # 12.6 10^3/ul (1.6-7.5); NEUTROPHILS % 84.4 % (39.0-77.0); PLATELET COUNT 256 10^3/UL (140-415); RED BLOOD COUNT 3.94 10^6/ul (4.20-5.40); WHITE BLOOD COUNT 14.9 10^3/ul (4.8-10.8)
--- NOTE | 2017-08-24 21:46 | RADRPT ---
PROCEDURE: OB Ultrasound. CLINICAL INDICATION: Positive test. Vaginal bleeding. TECHNIQUE: Ultrasound of the pelvis was performed with transabdominal sonography in the axial and sagittal planes. COMPARISON: No prior study is available for comparison. FINDINGS: There is no intrauterine gestational sac. The uterus measures 9.6 x 5.6 x 7.1 cm. Endometrial thickn ess is normal measuring 13.5 mm. The right ovary is not visualized. The left ovary appears normal measuring 2.7 x 1.2 x 2.3 cm. Color Doppler and pulsed Doppler sonography demonstrate normal flow to the left ovary. There is no other pelvic mass or free fluid. IMPRESSION: 1. No intrauterine gestational sac. If the patient has a positive test, ectopic gestation cannot be excluded. 2. Right ovary not visualized. 3. Otherwise unremarkable study. RPTAT: QQ .Ernie Gonzales MD, Date Time Electronically viewed and signed by .Ernie Gonzales MD, on 08/24/2017 21:46 .R/
[2017-08-24 22:16] LABS: ADD UMIC YES; UR ASCORBIC ACID NEGATIVE (NEGATIVE); UR BACTERIA FEW /HPF (NONE SEEN); UR BILIRUBIN (Dip) NEGATIVE (NEGATIVE); UR BLOOD (Dip) 3+ mg/dL (NEGATIVE); UR CLARITY TURBID (CLEAR); UR COLOR AMBER (YELLOW); UR GLUCOSE (Dip) 1+ mg/dL (NEGATIVE); UR KETONES (Dip) NEGATIVE (NEGATIVE); UR LEUKOCYTE ESTERASE (Dip) NEGATIVE Leu/ul (NEGATIVE); UR NITRITE (Dip) NEGATIVE (NEGATIVE); UR RBC > 182 /HPF (0-5); UR SPECIFIC GRAVITY (Dip) 1.021 (1.003-1.030); UR TOTAL PROTEIN (Dip) 2+ mg/dl (NEGATIVE); UR UROBILINOGEN (Dip) NEGATIVE (NEGATIVE)
[2017-08-24 23:52] VITALS: BP 115/67; PULSE 92; RESP 18; TEMP 98.1
--- NOTE | 2017-08-24 23:55 | ERD ---
ER Documentation Chief Complaint Date/Time DATE: 08/24/17 TIME: 23:47 Chief Complaint 7 wks preg, sudden vag bleed since this am. +abd pain HPI This is a 27-year-old female who presents to the ER currently 7 weeks with vaginal bleeding that started today. Patient states that bleeding is severe and she has crampy pelvic pain. A0. Patient denies urinary frequency or dysuria. ROS 12 point Review of system was done all negative except per HPI Medications Home Meds Active Scripts Acetaminophen* (Tylophen*) 500 Mg Capsule, 1 CAP PO Q6H Y for PAIN AND OR ELEVATED TEMP, #20 CAP Prov:EDMUND ESQUIVEL PRODUCTION EDITOR 08/09/17 Docusate Sodium* (Colace*) 100 Mg Capsule, 100 MG PO DAILY Y for CONSTIPATION, # 30 CAP Prov:PASILABANALLAR F 05/30/17 Ibuprofen* (Motrin*) 600 Mg Tab, 600 MG PO Q8 Y for PAIN AND OR ELEVATED TEMP, # 30 TAB Prov:ANY GARDNER 05/30/17 Ondansetron (Ondansetron Odt) 4 Mg Tab.rapdis, 4 MG PO Q6H Y for NAUSEA AND/OR VOMITING, #20 TAB Prov:ANY GARDNER F 05/30/17 Cephalexin* (Keflex*) 500 Mg Capsule, 500 MG PO QID for 5 Days, CAP Prov:PASILABANALLAR F 05/30/17 Ibuprofen* (Motrin*) 600 Mg Tab, 600 MG PO Q6, #30 TAB Prov:BRANDY AVILA 05/14/17 Meclizine Hcl* (Antivert*) 12.5 Mg Tab, 12.5 MG PO Q6H Y for DIZZINESS, #20 TAB Prov:MARGARITABRANDY HICKS C 05/14/17 Dicyclomine Hcl* (Bentyl*) 10 Mg Capsule, 10 MG PO QID for 7 Days, CAP Prov:MARGARITABRANDY HICKS C 05/14/17 Lorazepam* (Ativan*) 0.5 Mg Tablet, 0.5 MG PO Q8, #10 TAB Prov:MERARI PAULINO PA-C 03/15/17 Ondansetron Hcl* (Zofran*) 4 Mg Tablet, 4 MG PO Q6H for NAUSEA AND/OR VOMITING, #30 TAB Prov:KAROL BUNCH PA-C 09/28/16 Acetaminophen* (Tylophen*) 500 Mg Capsule, 1 CAP PO Q6H Y for PAIN AND OR ELEVATED TEMP, #20 CAP Prov:KAROL BUNCH PA-C 09/28/16 Polyethylene Glycol* (Miralax*) 17 Gm Powd.pack, 8.5 GM PO DAILY, #30 PACKET Prov:KAROL BUNCH PA-C 09/28/16 Methylprednisolone* (Medrol* DOSE PACK) 4 Mg/Dose-Pack Tab.ds.pk, 4 MG PO . DIRECTED for 6 Days, PACKET Prov:KAROL BUNCH PA-C 09/28/16 Ondansetron Hcl* (Zofran*) 4 Mg Tablet, 4 MG PO Q6H for NAUSEA AND/OR VOMITING, #30 TAB Prov:THIERRY DODD PA-C 09/21/16 Metronidazole* (Flagyl*) 500 Mg Tablet, 500 MG PO TID for 10 Days, TAB Prov:THIERRY DODD PA-C 09/21/16 Ciprofloxacin Hcl* (Ciprofloxacin Hcl*) 500 Mg Tablet, 500 MG PO BID for 7 Days , TAB Prov:THIERRY DODD PA-C 09/21/16 Prednisone* (Prednisone*) 20 Mg Tab, 40 MG PO DAILY for 4 Days, TAB Prov:THIERRY DODD PA-C 09/21/16 Ibuprofen* (Motrin*) 600 Mg Tab, 600 MG PO Q6, #20 TAB Prov:ANDREW COLON PA-C 05/28/15 Ciprofloxacin Hcl* (Ciprofloxacin Hcl*) 500 Mg Tablet, 500 MG PO BID for 7 Days , TAB Prov:ANDREW COLON PA-C 05/28/15 Reported Medications Albuterol Sulfate* (Proair HFA*) 8.5 Gm Hfa.aer.ad, 1-2 PUFF INH Q4-6 HOURS Y for WHEEZING AND SOB, INH 05/28/15 Allergies Allergies: Coded Allergies: No Known Allergy (Unverified , 08/24/17) PMhx/Soc History of Surgery: No Anesthesia Reaction: No Hx Neurological Disorder: No Hx Respiratory Disorders: Yes (asthma) Hx Cardiac Disorders: No Hx Psychiatric Problems: No Hx Miscellaneous Medical Probl: Yes (irritable bowel syndrome) Hx Alcohol Use: No Hx Substance Use: Yes (marijuana - used to) Hx Tobacco Use: Yes Smoking Status: Never smoker Physical Exam Vitals Vital Signs Date Time Temp Pulse Resp B/P Pulse Ox O2 Delivery O2 Flow Rate FiO2 08/24/17 23:52 98.1 92 18 115/67 97 Room Air 08/24/17 19:00 99.3 89 20 143/55 99 Physical Exam GENERAL: The patient is well developed and appropriate for usual state of health , in no apparent distress. HEENT: Atraumatic. CHEST: Clear to auscultation bilaterally. There are no rales, wheezes or rhonchi. HEART: Regular rate and rhythm. No murmurs, clicks, rubs or gallops. ABDOMEN: Soft, nontender and nondistended. Good bowel sounds. No rebound or guarding. No gross peritonitis. No gross organomegaly or masses. No Deluna sign or McBurney point tenderness. BACK: No midline or flank tenderness. NEURO: Alert and oriented. Result Diagram: 08/24/172054 Results 24 hrs Laboratory Tests Test 08/24/17 20:55 08/24/17 21:00 White Blood Count 14.910^3/ul Red Blood Count 3.9410^6/ul Hemoglobin 13.0g/dl Hematocrit 37.6% Mean Corpuscular Volume 95.4fl Mean Corpuscular Hemoglobin 33.0pg Mean Corpuscular Hemoglobin Concent 34.6g/dl Red Cell Distribution Width 12.0% Platelet Count 26955^3/UL Mean Platelet Volume 9.4fl Neutrophils % 84.4% Lymphocytes % 11.7% Monocytes % 3.0% Eosinophils % 0.3% Basophils % 0.3% Nucleated Red Blood Cells % 0.0/100WBC Neutrophils # 12.610^3/ul Lymphocytes # 1.710^3/ul Monocytes # 0.510^3/ul Eosinophils # 0.110^3/ul Basophils # 0.010^3/ul Nucleated Red Blood Cells # 0.010^3/ul Beta HCG, Quantitative 87435.0mIU/ml Urine Color LEANDRO Urine Clarity TURBID Urine pH 6.0 Urine Specific [place] 1.021 Urine Ketones NEGATIVEmg/dL Urine Nitrite NEGATIVEmg/dL Urine Bilirubin NEGATIVEmg/dL Urine Urobilinogen NEGATIVEmg/dL Urine Leukocyte Esterase NEGATIVELeu/ul Urine Microscopic RBC > 182/HPF Urine Microscopic WBC 0/HPF Urine Bacteria FEW/HPF Urine Hemoglobin 3+mg/dL Urine Glucose 1+mg/dL Urine Total Protein 2+mg/dl Current Medications Medications (Trade) Dose Ordered Sig/Lj Route PRN Reason Start Time Stop Time Status Last Admin Dose Admin Acetaminophen (Tylenol Tab) 1,000 mg ONCE STAT PO 08/24/17 20:39 08/24/17 20:40 DC 08/24/17 21:28 [place] [id number] Radiology Main Line: [phone] DIAGNOSTIC IMAGING REPORT Patient: DUSTIN BANGURA : 1990 Age: 27 Sex: F MR #: [id number] DOS: 08/24/172038 Ordering MD: BRANDY AVILA PA-C [facility] Room[facility]Bed: PROCEDURE: OB Ultrasound. CLINICAL INDICATION: Positive test. Vaginal bleeding. TECHNIQUE: Ultrasound of the pelvis was performed with transabdominal sonography in the axial and sagittal planes. COMPARISON: No prior study is available for comparison. FINDINGS: There is no intrauterine gestational sac. The uterus measures 9.6 x 5.6 x 7.1 cm. Endometrial thickness is normal measuring 13.5 mm. The right ovary is not visualized. The left ovary appears normal measuring 2.7 x 1.2 x 2.3 cm. Color Doppler and pulsed Doppler sonography demonstrate normal flow to the left ovary. There is no other pelvic mass or free fluid. IMPRESSION: 1. No intrauterine gestational sac. If the patient has a positive test, ectopic gestation cannot be excluded. 2. Right ovary not visualized. 3. Otherwise unremarkable study. RPTAT: QQ .Ernie Gonzales MD, MD Date Time Electronically viewed and signed by .Ernie Gonzales MD, on 08/24/2017 21:46 .R/ CC: BRANDY AVILA Procedures/MDM Differential diagnosis: Threatened , missed , incomplete , ectopic , molar , UTI, pyelonephritis. Unfortunately, patient likely had a spontaneous . I discussed this case with HYBRID POWERTRAIN DEVELOPMENT ENGINEER iron piler, since patient's quantitative hCG was 77,842 with no intrauterine gestation seen on ultrasound. She did have an intrauterine gestation on August 09, therefore this is likely an . Patient is hemodynamically stable and her vital signs are stable. Patient is to follow-up with her OB as soon as possible for serial hCGs. And should return to ER sooner if symptoms worsen. My medical decision making was shared with the patient she understands and agrees with plan. Departure Diagnosis: Primary Impression: Spontaneous Condition: Stable Patient Instructions: Miscarriage Additional Instructions: SPECIALIST: YOU HAVE A MEDICAL CONDITION WHICH REQUIRES YOU TO SEE A SPECIALIST WITHIN THE NEXT 1-2 DAYS. PLEASE FOLLOW UP WITH YOUR PRIMARY PHYSICIAN FOR REFFERAL.IF YOU DO NOT HAVE A PRIMARY CARE PHYSICIAN AND/OR YOU CAN NOT AFFORD TO SEE A PHYSICIAN THE FOLLOWING RESOURCES HAVE BEEN SUPPLIED TO YOU. IT IS YOUR RESPONSIBILITY TO BE SEEN BY THE SPECIALIST-> YOU MUST SEE AN HYBRID POWERTRAIN DEVELOPMENT ENGINEER FOR SERIAL HCG'S! BRANDY AVILA Aug 24, 2017 23:55
== END 2017-08-24 23:52 | disposition home or self-care (01) ==
LOC: FTE 18:43
DX: O03.9 Complete or unspecified spontaneous abortion without complication (principal); J45.909 Unspecified asthma, uncomplicated; R10.2 Pelvic and perineal pain
CPT/HCPCS: 36415; 76801; 81001; 84702; 85025; 86900; 86901; Z7502; Z7610

== ENCOUNTER 2017-11-04 08:07 | Emergency (ER) | payer OTHER ==
[~2017-11-04] VITALS: Ht 157.5 cm; Wt 60.4 kg
[2017-11-04 08:09] VITALS: Ht 157.5 cm; Wt 60.4 kg
[2017-11-04] MEDS ORDERED: POLY10DR19 BOTH EYES (09:06)
--- NOTE | 2017-11-04 10:04 | ERD ---
ER Documentation Chief Complaint Chief Complaint BILAT EYE REDNESS YESTERDAY WITH DRAINAGE. HPI 27-year-old female complaining of bilateral eye irritation with drainage. Patient states she wakes up in the morning her eyes are glued shut with pus. She denies any contacts or glasses use. Denies any visual changes. Denies fever. Tried putting lemon in her eyes to alleviate her symptoms. ROS All systems reviewed and are negative except as per history of present illness. Medications Home Meds Active Scripts Polymyxin B Sulfate-TMP* (Polymyxin B-TMP Eye Drops*) 10 Ml Drops, 1 DROP BOTH EYES QID for 7 Days, EA Prov:THIERRY DODD PA-C 11/04/17 Acetaminophen* (Tylophen*) 500 Mg Capsule, 1 CAP PO Q6H Y for PAIN AND OR ELEVATED TEMP, #20 CAP Prov:EDMUND ESQUIVEL NP 08/09/17 Docusate Sodium* (Colace*) 100 Mg Capsule, 100 MG PO DAILY Y for CONSTIPATION, # 30 CAP Prov:PASILABANALLAR F 05/30/17 Ibuprofen* (Motrin*) 600 Mg Tab, 600 MG PO Q8 Y for PAIN AND OR ELEVATED TEMP, # 30 TAB Prov:PASILAALL MENDOZAAR F 05/30/17 Ondansetron (Ondansetron Odt) 4 Mg Tab.rapdis, 4 MG PO Q6H Y for NAUSEA AND/OR VOMITING, #20 TAB Prov:PASILAALL MENDOZAAR F 05/30/17 Cephalexin* (Keflex*) 500 Mg Capsule, 500 MG PO QID for 5 Days, CAP Prov:PASILABANALLAR F 05/30/17 Ibuprofen* (Motrin*) 600 Mg Tab, 600 MG PO Q6, #30 TAB Prov:MARGARITABRANDY HICKS C 05/14/17 Meclizine Hcl* (Antivert*) 12.5 Mg Tab, 12.5 MG PO Q6H Y for DIZZINESS, #20 TAB Prov:MARGARITA,BRANDY C 05/14/17 Dicyclomine Hcl* (Bentyl*) 10 Mg Capsule, 10 MG PO QID for 7 Days, CAP Prov:MARGARITA,BRANDY C 05/14/17 Lorazepam* (Ativan*) 0.5 Mg Tablet, 0.5 MG PO Q8, #10 TAB Prov:MERARI PAULINO PA-C 03/15/17 Ondansetron Hcl* (Zofran*) 4 Mg Tablet, 4 MG PO Q6H for NAUSEA AND/OR VOMITING, #30 TAB Prov:KAROL BUNCH PA-C 09/28/16 Acetaminophen* (Tylophen*) 500 Mg Capsule, 1 CAP PO Q6H Y for PAIN AND OR ELEVATED TEMP, #20 CAP Prov:KAROL BUNCH PA-C 09/28/16 Polyethylene Glycol* (Miralax*) 17 Gm Powd.pack, 8.5 GM PO DAILY, #30 PACKET Prov:KAROL BUNCH PA-C 09/28/16 Methylprednisolone* (Medrol* DOSE PACK) 4 Mg/Dose-Pack Tab.ds.pk, 4 MG PO . DIRECTED for 6 Days, PACKET Prov:KAROL BUNCH PA-C 09/28/16 Ondansetron Hcl* (Zofran*) 4 Mg Tablet, 4 MG PO Q6H for NAUSEA AND/OR VOMITING, #30 TAB Prov:THIERRY DODD PA-C 09/21/16 Metronidazole* (Flagyl*) 500 Mg Tablet, 500 MG PO TID for 10 Days, TAB Prov:THIERRY DODD PA-C 09/21/16 Ciprofloxacin Hcl* (Ciprofloxacin Hcl*) 500 Mg Tablet, 500 MG PO BID for 7 Days , TAB Prov:THIERRY DODD PA-C 09/21/16 Prednisone* (Prednisone*) 20 Mg Tab, 40 MG PO DAILY for 4 Days, TAB Prov:THIERRY DODD PA-C 09/21/16 Ibuprofen* (Motrin*) 600 Mg Tab, 600 MG PO Q6, #20 TAB Prov:ANDREW COLON PA-C 05/28/15 Ciprofloxacin Hcl* (Ciprofloxacin Hcl*) 500 Mg Tablet, 500 MG PO BID for 7 Days , TAB Prov:ANDREW COLON PA-C 05/28/15 Reported Medications Albuterol Sulfate* (Proair HFA*) 8.5 Gm Hfa.aer.ad, 1-2 PUFF INH Q4-6 HOURS Y for WHEEZING AND SOB, INH 7/14/15 Allergies Allergies: Coded Allergies: No Known Allergy (Unverified , 08/24/17) PMhx/Soc History of Surgery: No Anesthesia Reaction: No Hx Neurological Disorder: No Hx Respiratory Disorders: Yes (asthma) Hx Cardiac Disorders: No Hx Psychiatric Problems: No Hx Miscellaneous Medical Probl: Yes (irritable bowel syndrome) Hx Alcohol Use: No Hx Substance Use: Yes (marijuana - used to) Hx Tobacco Use: Yes Smoking Status: Current some day smoker Physical Exam Vitals Vital Signs Date Time Temp Pulse Resp B/P Pulse Ox O2 Delivery O2 Flow Rate FiO2 11/04/17 08:09 97.8 106 17 118/66 100 Physical Exam GENERAL: The patient is well-appearing, well-nourished, in no acute distress HEENT: Atraumatic. Conjunctivae are pink. Pupils equal, round, and reactive to light. Erythema noted to bilateral sclera. Mild purulent discharge around the eyelids. Tympanic membranes clear bilaterally. Oropharynx clear. No nystagmus or photophobia. NECK: C-spine is soft and supple. There is no meningismus. There is no cervical lymphadenopathy. CHEST: Clear to auscultation bilaterally. There are no rales, wheezes or rhonchi. HEART: Regular rate and rhythm. No murmurs, clicks, rubs or gallops. No S3 or S4. Procedures/MDM MDM: 27-year-old female presenting with eye irritation. Her eye exam is concerning for bacterial conjunctivitis and I will treat with antibacterial eyedrops. A low suspicion for periorbital orbital cellulitis. I have low suspicion for visual deficits. Patient is discharged with antibacterial drops and told to follow-up with primary care within 1 to days for close evaluation. All questions answered discharge. Patient was discharged with strict ER precautions Departure Diagnosis: Primary Impression: Bacterial conjunctivitis Condition: Stable Patient Instructions: Conjunctivitis, Bacterial Additional Instructions: FOLLOW UP WITH YOUR PRIMARY CARE PHYSICIAN TOMORROW.Return to this facility if you are not improving as expected. THIERRY DODD PA-C Nov 04, 2017 10:04
== END 2017-11-04 09:38 | disposition home or self-care (01) ==
LOC: FTE 08:07
DX: H10.023 Other mucopurulent conjunctivitis, bilateral (principal); J45.909 Unspecified asthma, uncomplicated; F17.210 Nicotine dependence, cigarettes, uncomplicated
CPT/HCPCS: 99283

== ENCOUNTER 2017-11-18 13:12 | Emergency (ER) | END 2017-11-18 14:24 | disposition home or self-care (01) ==

== ENCOUNTER 2018-05-21 10:30 | Emergency (ER) | END 2018-05-21 14:06 | disposition home or self-care (01) ==

== ENCOUNTER 2018-11-11 13:28 | Outpatient (CLI) | END 2018-11-11 18:44 | disposition home or self-care (01) ==

== ENCOUNTER 2018-12-30 17:03 | Outpatient (CLI) | payer OTHER ==
[~2018-12-30] VITALS: Ht 157.5 cm; Wt 75.6 kg
[~2018-12-30 17:03] MED LIST changes: -ALBU8.5H3 INH; +ALBU8.5H8 INH; +BENZ-6 PO; +DICY10CA40 PO; -DICY10CA60 PO; +PENI500T PO; +POLY10DR19 BOTH EYES; +TYL500 PO
[2018-12-30 17:32] VITALS: BP 121/63; PULSE 103; RESP 18; Ht 157.5 cm; Wt 75.6 kg
[2018-12-30] MEDS ORDERED: PNV11TAB PO (17:35)
--- NOTE | 2018-12-31 01:47 | TRIAGE ---
OB Triage Datetime Report Generated by CPN: 12/31/2018 01:47 Datetime: 12/30/2018 21:07 Stage of : OB Triage Labor Evaluation Frequency: 3-7 Monitor Mode: External Duration (sec)2399: 40-130 Quality: Mild Pattern: Normal: <= 5 Contractions in 10 Minutes Resting Tone [place]: Relaxed Heart Rate FHR Baseline Rate: 130 Monitor Mode: External US Variability: Moderate 6-25 bpm Accelerations: 15X15 Decelerations: None Category: Category I Datetime: 12/30/2018 20:54 Pain Assessment Pain Scale: 0 Pain Presence: None/Denies Pain Type: N/A Vaginal Exam Dilatation (cms): 1.0 Effacement (%): 50 Station: -3 Exam By: CALLUM Hancock Membrane Status: Intact Vaginal Bleeding: None Cervix, Consistency: Moderate Cervix, Position: Posterior Datetime: 12/30/2018 20:53 Stage of : OB Triage Temperature Route: Oral Pain Assessment Pain Scale: 0 Pain Presence: None/Denies Pain Type: N/A Datetime: 12/30/2018 19:20 Stage of : OB Triage Datetime: 12/30/2018 17:38 Stage of : OB Triage Datetime: 12/30/2018 17:25 Stage of : OB Triage Assessment Type: Triage Maternal Assessment Level of Consciousness: Fully Conscious DTR's/Clonus: DTRs 2+; No Clonus Headache: Denies Blurred Vision: No Respiratory Effort: Unlabored; Regular Rhythm; Equal Expansion Breath Sounds, Left: Clear and Equal Breath Sounds, Right: Clear and Equal Nausea/Vomiting: Denies RUQ Epigastric Pain: Denies Facial Edema: None Temperature Route: Axillary Fall Risk Assessment History of Falling: (0) No Secondary Diagnosis: (0) No Ambulatory Aid: (0) Bedrest/Nurse Assist IV Therapy: (0) No Gait: (0) Normal/Bedrest/Immobile Mental Status: (0) Oriented to Own Ability Fall Score: 0 Fall Risk Score Definition: No Risk: No action required Labor Evaluation Frequency: 0 Monitor Mode: External Pattern: Normal: <= 5 Contractions in 10 Minutes Resting Tone [place]: Relaxed Heart Rate FHR Baseline Rate: APPLIED Monitor Mode: External US Variability: Moderate 6-25 bpm Accelerations: 10X10 Decelerations: None Category: Category I Pain Assessment Pain Scale: 1 Pain Presence: Intermittent Pain Type: Cramping; Contraction Pain Location: Abdomen Pain Goal: 3 Pain Relief Measures: Comfort Measures Vaginal Exam Dilatation (cms): 1.0 Effacement (%): 50 Station: -2 Exam By: S CATALINA Membrane Status: Intact Datetime: 12/30/2018 17:23 Time of Arrival: 12/30/2018 16:54 EGA: 38.6 Arrived By: Ambulatory Arrived From: Home Chief Complaint: C/O UC'S X 3 DAYS, SPOTTING, DENIES LEAKING Movement: Present Contractions: Irregular Rupture of Membranes: Denies Vaginal Bleeding: None Vaginal Discharge: Present Recent Sexual Intercouse: Denies Abdominal Trauma: Not Applicable Patient Complaints: Contractions; Cramping Time Provider Notified: 12/30/2018 17:38 Provider Notified: narda Initial Plan: MONITOR, VE, Datetime: 11/11/2018 13:48 EGA: 31.6
--- NOTE | 2018-12-31 09:05 | PN ---
Triage Information Date/Time Reason for visit: Abd/pelvic pain Weeks of Gestation 38 weeks and 6 days /Para Diabetes: none Hypertention: none Objective Vital Signs Date Temp Pulse Resp B/P (MAP) Pulse Ox O2 O2 Flow FiO2 Time Delivery Rate 12/30/18 98.1 103 18 121/63 17:32 (82) Heart Rate: 140's Contractions: 6-10 Minutes Apart Results/Medications Imaging Results There is a single live intrauterine . cardiac activity is identified at a rate of 135 beats per minute. presentation is cephalic. Placenta is fundal grade II. There is no evidence of abruption or previa. Biophysical profile score is as follows: Breathing 2 Movements 2 Tone 2 Fluid volume 2 Amniotic fluid index = 11.9 cm Total biophysical profile score = 8/8 IMPRESSION: Biophysical profile score = 8/8 Disposition: Discharge Assessment/Plan 28 years old at 38 weeks and 6 days with a CARISSA of 01/07/2019 complaining of irregular uterine contractions and pinkish discharge when she wiped herself. heart rate is category 1. She has irregular uterine contractions, is comfortable with those. Vaginal exam performed; 50/-3/cephalic/intact. Ultrasound performed as noted above. Repeat cervical exam exam in 2hours was unchanged. Sign and symptom of labor, preeclampsia, kick count discussed in detail with patient. She expressed understanding. All of her questions answered. She discharged home in stable condition with follow-up with her primary OB in 3 days. I strongly recommend back to triage if experiencing regular uterine contractions. MERCEDEZ RAMIREZ Dec 31, 2018 09:05
== END 2018-12-30 21:11 | disposition home or self-care (01) ==
LOC: OBT 17:03 → L-D 17:07 → OBT 21:11
PROVIDERS: ATTEND Specialist
DX: O26.893 Other specified pregnancy related conditions, third trimester (principal); Z3A.38 38 weeks gestation of pregnancy; R10.2 Pelvic and perineal pain
CPT/HCPCS: 76818; Z7500; G0463

== ENCOUNTER 2019-01-07 14:01 | Inpatient (IN) | payer OTHER ==
[~2019-01-07] VITALS: Ht 157.5 cm; Wt 75.0 kg
[~2019-01-07 14:01] MED LIST changes: -ACET500C5 PO; -BENZ-6 PO; -CEPH-443 PO; -CIPR500T4 PO; -DICY10CA40 PO; -DOCU-144 PO; -IBUP-1542 PO; -LORA-441 PO; -MECL12.574 PO; -MED4DP PO; -METR500T PO; -ONDA4TAB14 PO; -ONDA4TAB8 PO; -PENI500T PO; +PNV11TAB PO; -POLY10DR19 BOTH EYES; -POLY17PO6 PO; -PRED20TA PO; -TYL500 PO
[2019-01-07 14:23] VITALS: Ht 157.5 cm; Wt 75.0 kg
[2019-01-07 14:24] VITALS: BP 114/55; PULSE 88; RESP 20
--- NOTE | 2019-01-07 15:09 | TRIAGE ---
OB Triage Datetime Report Generated by CPN: 01/07/2019 15:08 Datetime: 01/07/2019 14:16 Time of Arrival: 01/07/2019 14:00 EGA: 40.0 Arrived By: Ambulatory Arrived From: Home Chief Complaint: UCS SINCE 1000 Movement: Present Contractions: Regular Time Contractions Began: 01/07/2019 10:00 Rupture of Membranes: Denies Vaginal Bleeding: None Vaginal Discharge: Denies Recent Sexual Intercouse: Denies Abdominal Trauma: Not Applicable Patient Complaints: Contractions Provider Notified: DR EUBANKS Initial Plan: EFM,CALL DR EUBANKS FOR DR SINGH Maternal Assessment Level of Consciousness: Fully Conscious DTR's/Clonus: DTRs 2+; No Clonus Headache: Denies Blurred Vision: No Respiratory Effort: Unlabored; Regular Rhythm; Equal Expansion Breath Sounds, Left: Clear and Equal Breath Sounds, Right: Clear and Equal Nausea/Vomiting: Denies RUQ Epigastric Pain: Denies Facial Edema: None Temperature Route: Axillary Fall Risk Assessment History of Falling: (0) No Secondary Diagnosis: (0) No Ambulatory Aid: (0) Bedrest/Nurse Assist IV Therapy: (0) No Gait: (0) Normal/Bedrest/Immobile Mental Status: (0) Oriented to Own Ability Fall Score: 0 Fall Risk Score Definition: No Risk: No action required Datetime: 01/07/2019 14:13 Maternal Assessment Level of Consciousness: Fully Conscious DTR's/Clonus: DTRs 2+ Headache: Denies Blurred Vision: No Nausea/Vomiting: Denies RUQ Epigastric Pain: Denies Facial Edema: None Labor Evaluation Frequency: IRREG Monitor Mode: External Quality: Moderate Pattern: Normal: <= 5 Contractions in 10 Minutes Resting Tone [place]: Relaxed Heart Rate FHR Baseline Rate: 150 Monitor Mode: External US FHR Baseline Changes: No Baseline Change Variability: Moderate 6-25 bpm Accelerations: 15X15 Decelerations: None Category: Category I Pain Assessment Pain Scale: 5 Pain Presence: Intermittent Pain Type: Contraction Pain Location: Abdomen Pain Goal: 5 Vaginal Exam Dilatation (cms): 1.5 Effacement (%): 50 Station: -2 Exam By: GRAYSON NOLEN Membrane Status: Intact Vaginal Bleeding: None Cervix, Consistency: Moderate Cervix, Position: Posterior Datetime: 12/30/2018 20:54 Stage of : OB Triage Datetime: 12/30/2018 20:22 Stage of : OB Triage Datetime: 12/30/2018 17:25 Fall Score: 0 Fall Risk Score Definition: No Risk: No action required Datetime: 12/30/2018 17:23 EGA: 38.6 Datetime: 11/11/2018 13:48 EGA: 31.6
[2019-01-07] MEDS ORDERED: LIDOCAINE 1% (MPF) 30 ML INJ INJ PRN (15:30)
[2019-01-07] MEDS ORDERED: OXYTOCIN 30 UNITS/LR 500 ML IV PRN (15:30)
[2019-01-07] MEDS ORDERED: OXYTOCIN 30 UNITS/LR 500 ML IV SCH ×3 (15:30)
[2019-01-07] MEDS ORDERED: MISOPROSTOL 200 MCG TAB PR PRN (15:30)
[2019-01-07] MEDS ORDERED: ALBUTEROL HFA 8 GM INHALER INH PRN (15:30)
[2019-01-07] MEDS ORDERED: AMPICILLIN 2 GM/NS (PMX) 100 ML IV ONE (15:30)
[2019-01-07] MEDS ORDERED: CARBOPROST 250 MCG INJ IM PRN (15:30)
[2019-01-07] MEDS ORDERED: IBUPROFEN 600 MG TAB PO PRN (15:30)
[2019-01-07] MEDS ORDERED: BUTORPHANOL 2 MG INJ IV PRN (15:30)
[2019-01-07] MEDS ORDERED: METHYLERGONOVINE 0.2 MG INJ IM PRN (15:30)
[2019-01-07] MEDS ORDERED: BUTORPHANOL 1 MG INJ IV PRN (15:30)
[2019-01-07] MEDS: LACTATED RINGER'S 1,000 ML IV SCH ×3 (15:36→23:31)
--- NOTE | 2019-01-07 18:48 | HP ---
Date/Time of Note Date/Time of Note DATE: 01/07/19 TIME: 18:35 OB - History Hx of Present Free Text/Dictation 28y.o here at triage at 40w with c/o uterine contractions which started since 01/07/19 without any leakage of fluid. EFM revealed irregular uc's ,CAT I tracing pain 5/10 Initial VE 1-50/-2 Her course was unevenful.,initiated in early with u/s done06/03/18(8w6d) and 08/12/18 (19w) GBS neg Patient is requesting IOL/augmentaion.,which is allowed. Admitted for IOL/augmentation Chief Complaint: uc's Estimated Due Date: Jan 07, 2019 : 4 Para: 2 Spontaneous : 0 Therapeutic : 1 Care: Good Care Ultrasounds: Normal mid trimester US Obstetrical Complications: None Medical Complications: None Past Family/Social History * Past Medical, Surgical, Family and Obstetric Histories reviewed from chart. Blood Type: O+ Rubella: immune RPR/VDRL: Negative GBS Status: Negative HBsAG: Negative OB Admission Exam Vital Signs Vital Signs Vital Signs Date Temp Pulse Resp B/P (MAP) Pulse Ox O2 O2 Flow FiO2 Time Delivery Rate 01/07/19 98.2 88 20 114/55 Room Air 14:24 (74) Physical Exam HEENT: WNL Heart: Rhythm Normal Lungs: Clear, Equal Abdomen: WNL Extremities: Normal Reflexes: Normal Cervical Dilatation: other (1-2) Effacement: 50% Station: -2 Membranes: Intact Amniotic Fluid: Unevaluable Heart Rate: 150's Accelerations: Accelerations Present Varibility: Moderate Contractions on Admission: >10 Minutes Apart Intensity: Mild Last 72 hours Lab Results CBC & BMP 01/07/19 15:20 OB Assessment/Plan Reason for admission: induction of labor Other Assessment: IUP40w Plan: Induction Induction Method: per Pitocin Protocol TABBY EUBANKS MD Jan 07, 2019 18:46
[2019-01-07] MEDS ORDERED: AMPICILLIN 1 GM/NS (PMX) 50 ML IV SCH (19:30)
[2019-01-07] MEDS ORDERED: FENTAnyl 2MCG/ML-ROPIV 0.2% 100 ML ONE (23:44)
--- NOTE | 2019-01-07 23:57 | PREAC ---
Date/Time of Note Date/Time of Note DATE: 01/07/19 TIME: 23:55 Anesthesia Eval and Record Evaluation Time Pre-Procedure Interview DATE: 01/07/19 TIME: 23:17 Age 28 Sex female NPO: 8 hrs Preoperative diagnosis iup @ 39 wks., , labor Planned procedure edwin Past Medical History Past Medical History: Includes Pulm: Asthma : : (4), Para: (2), Gestational age: (39 wks.) Surgery & Anesthesia Issues No known issue Meds Anticoagulation: No Beta Hugo within 24 hr: No Reason Beta Hugo not given: Pt. not on B-Hugo Reported Medications [id number] ( ) 1 Each Tablet, 1 TAB PO DAILY, TAB 12/30/18 Albuterol Sulfate* (Proair HFA*) 8.5 Gm Hfa.aer.ad, 1-2 PUFF INH Q4-6 HOURS PRN for WHEEZING AND SOB, INH 05/28/15 Current Medications Lactated Ringer's 1,000 ml @ 125 mls/hr Q8H IV Last administered on 01/07/19at 23:31; Admin Dose 125 MLS/HR; Start 01/07/19 at 15:09 Butorphanol Tartrate (Stadol) 1 mg Q2H PRN IV .PAIN; Start 01/07/19 at 15:30 Butorphanol Tartrate (Stadol) 2 mg Q2H PRN IV .PAIN; Start 01/07/19 at 15:30 Lidocaine (Xylocaine 1% (Mpf)) 30 ml ONCE PRN INJ .EPISIOTOMY; Start 01/07/19 at 15:30 Oxytocin/Lactated Ringer's 500 ml @ 500 mls/hr ONCE POST IV ; Start 01/07/19 at 15:30 Oxytocin/Lactated Ringer's 500 ml @ 125 mls/hr POST IV ; Start 01/07/19 at 15:30 Ibuprofen (Motrin) 600 mg ONCE PRN PO .PAIN 1-5; Start 01/07/19 at 15:30 Oxytocin/Lactated Ringer's 500 ml @ 0 mls/hr ONCE PRN IV .VAGINAL BLEEDING; Start 01/07/19 at 15:30 Methylergonovine Maleate (Methergine) 0.2 mg ONCE PRN IM .VAGINAL BLEEDING; Start 01/07/19 at 15:30 Carboprost Tromethamine (Hemabate) 250 mcg ONCE PRN IM .VAGINAL BLEEDING; Start 01/07/19 at 15:30 Misoprostol (Cytotec) 1,000 mcg ONCE PRN [place] .VAGINAL BLEEDING; Start 01/07/19 at 15:30 Oxytocin/Lactated Ringer's 500 ml @ 0 mls/hr FOR AUGMENTATION IV Last ad ministered on 01/07/19at 16:27; Admin Dose 2 MLS/HR; Start 01/07/19 at 15:30 Meds reviewed: Yes Allergies Coded Allergies: No Known Allergy (Unverified , 11/11/18) Allergies Reviewed: Yes Labs/Studies Labs Reviewed: Reviewed by anesthesiologist Result Diagram: 01/07/19 1520 Laboratory Tests 01/07/19 15:20 Blood Bank Test 01/07/19 15:20 Antibody Screen NEGATIVE Blood Type O POSITIVE Rh Immune Globulin Candidate NO test: Positive Studies: ECG (n/a), CXR (n/a) Pre-procedure Exam Last vitals Vital Signs Date Temp Pulse Resp B/P (MAP) Pulse Ox O2 O2 Flow FiO2 Time Delivery Rate 01/07/19 98.2 88 20 114/55 Room Air 14:24 (74) Airway: Adequate mouth opening, Adequate thyromental dist Mallampati: Mallampati II Teeth: Normal Lung: Normal Heart: Normal ASA Physical Status ASA physical status: 3 Emergency: E Planned Anesthetic Neuraxial: Epidural Planned Pain Management Local by surgeon Pre-operative Attestations Prior to commencing anesthesia and surgery, the patient was re-evaluated, there was verification of: *The patient's identity *The results of appropriate recent lab work and preoperative vital signs *The above evaluation not changing prior to induction *Anesthetic plan, risk benefits, alternative and complications discussed with patient/family; questions answered; patient/family understands, accepts and wishes to proceed. Outreach Team Member used DEIRDRE FERNANDEZ MD Jan 07, 2019 23:57
--- NOTE | 2019-01-07 23:58 | PAC ---
Date/Time of Note Date/Time of Note DATE: 01/08/19 TIME: 14:00 Post-Anesthesia Notes Post-Anesthesia Note Last documented vital signs Vital Signs Date Temp Pulse Resp B/P (MAP) Pulse Ox O2 O2 Flow FiO2 Time Delivery Rate 01/07/19 98.2 88 20 114/55 Room Air 14:24 (74) Activity: WNL Respiratory function: WNL Cardiovascular function: WNL Mental status: Baseline Pain reasonably controlled: Yes Hydration appropriate: Yes Nausea/Vomiting absent: Yes DEIRDRE FERNANDEZ MD Jan 07, 2019 23:58
[2019-01-08] MEDS ORDERED: NALOXONE (0.4 MG/ML) INJ IV PRN
[2019-01-08] MEDS ORDERED: FENTAnyl 2MCG/ML-ROPIV 0.2% 100 ML BAG EPI SCH
[2019-01-08] MEDS ORDERED: OXYTOCIN 30 UNITS/LR 500 ML IV SCH (01:50)
[2019-01-08] MEDS: LACTATED RINGER'S 1,000 ML IV* SCH ×3 (01:50→17:50)
--- NOTE | 2019-01-08 01:50 | LDN ---
Date/Time of Note Date/Time of Note DATE: 01/08/19 TIME: 01:49 Delivery Summary Placenta Delivered: Spontaneously Meconium: none Episiotomy: No Laceration repair: R. labial lacerations repaired wt 3-0 chromic Anesthesia type: Epidural Estimated blood loss: 300 Sponge & Needle done & correct: Yes All needle counts correct: Yes Any foreign bodies felt in the: No Infant Delivery Information Sex Sex: female Apgars 1 Minute: 8 5 Minute: 9 Suctioning Nose & mouth suctioned at aylin: Yes Umbilical Cord Umbilical cord with: 3 Vessels Cord presentations: no nuchal cord Cord Blood was obtained: Yes Mother & Baby Disposition Disposition Mom & Baby to Maternity; Good: Yes MARY ARAYA Jan 08, 2019 01:50
[2019-01-08] MEDS ORDERED: OXYTOCIN 30 UNITS/LR 500 ML IV PRN (02:00)
[2019-01-08] MEDS ORDERED: DIBUCAINE 1% 30 GM OINT TOP PRN (02:00)
[2019-01-08] MEDS ORDERED: METHYLERGONOVINE 0.2 MG INJ IM PRN (02:00)
[2019-01-08] MEDS ORDERED: CARBOPROST 250 MCG INJ IM PRN (02:00)
[2019-01-08] MEDS ORDERED: BENZOCAINE 20% 56 ML SPRAY TOP PRN (02:00)
[2019-01-08] MEDS ORDERED: HYDROCODONE/APAP (5/325) TAB PO PRN ×2 (02:00)
[2019-01-08] MEDS ORDERED: WITCH HAZEL/GLYCERIN PAD PR PRN (02:00)
[2019-01-08] MEDS ORDERED: MISOPROSTOL 200 MCG TAB PR PRN (02:00)
[2019-01-08 04:00] VITALS: BP 130/58; PULSE 95; RESP 18
[2019-01-08] MEDS: IBUPROFEN 600 MG TAB PO SCH ×4 (05:47→23:37)
[2019-01-08] MEDS: LANOLIN HPA 1 PKT TOP PRN (05:47)
[2019-01-08 08:00] VITALS: BP 125/83; PULSE 97; RESP 18
[2019-01-08 16:00] VITALS: BP 128/66; PULSE 92; RESP 18
[2019-01-08 19:40] VITALS: BP 124/64; PULSE 89; RESP 19
[2019-01-09] MEDS: LACTATED RINGER'S 1,000 ML IV* SCH (01:50)
[2019-01-09 04:00] VITALS: BP 123/65; PULSE 79; RESP 20
[2019-01-09] MEDS: IBUPROFEN 600 MG TAB PO SCH ×3 (05:35→17:57)
--- NOTE | 2019-01-09 07:36 | DS ---
Date/Time of Note Date/Time of Note DATE: 01/09/19 TIME: 07:35 Obstetrical Discharge Record Final Diagnosis Final Diagnosis: Term delivered Vaginal Delivery Obstetrical Delivery: Spontaneous Complications Augmentation: Yes Induction: No Rupture of Membranes: No Condition on Discharge Physical Assessment Voiding: Yes Bowel Movement: Yes Breast: Soft, non-tender, Filling Fundus: Firm Abdomen and Incision: soft, not tender. firm fundus at umbilicus Calf Tenderness: No Patient Condition: Good LARISA HOPKINS MD Jan 09, 2019 07:36
[2019-01-09 08:30] VITALS: BP 116/58; PULSE 86; RESP 17
[2019-01-09] MEDS: LANOLIN HPA 1 PKT TOP PRN (11:36)
[2019-01-09 15:50] VITALS: BP 110/66; PULSE 89; RESP 19
[2019-01-10] MEDS ORDERED: MEASLES,MUMPS,RUBELLA VACCINE INJ SC* ONE (09:00)
[2019-01-10] MEDS ORDERED: DIPHTH/TET/ACEL PERTUSS (ADULT) 0.5 ML VIAL IM* ONE (09:00)
[2019-01-10] MEDS ORDERED: VARICELLA VACCINE LIVE/PF 1,350 UNIT/0.5 ML ML SC* ONE (09:00)
== END 2019-01-09 18:45 | disposition home or self-care (01) | DRG 807 ==
LOC: OBT 14:01 → L-D 14:01 → OBT 15:00 → L-D 15:00 → PP1 01-08 03:53
PROVIDERS: ADMIT Specialist; ATTEND Specialist
PROC: 10E0XZZ Delivery of Products of Conception, External Approach (ICD-10-PCS; principal; 2019-01-08)
PROC: 0HQ9XZZ Repair Perineum Skin, External Approach (ICD-10-PCS; 2019-01-08)
DX: O70.0 First degree perineal laceration during delivery (principal); Z37.0 Single live birth; Z3A.40 40 weeks gestation of pregnancy
CPT/HCPCS: 62319; 76815; 85025; 85610; 85730; 86592; 86703; 86762; 86850; 86900; 86901; 87340; G0463; J2210; J2590; J3010; J7120